=== PATIENT | female | born 1945 | race Caucasian/White ===

== ENCOUNTER 2020-09-22 13:56 | Inpatient (IN) ==
[2020-09-22] MEDS ORDERED: dilTIAZem HCL 240 MG CAPCR PO STA (14:25)
[2020-09-22 14:42] LABS: Basophils # (auto) 0.02 K/uL (0-0.2); Basophils % (auto) 0.2 %; Eosinophils # (auto) 0.12 K/uL (0-0.5); Eosinophils % (auto) 1.2 %; Hematocrit (blood only) 42.3 % (37-47); Hemoglobin 12.9 g/dL (12.0-16.0); Immature Granulocytes # (auto) 0.02 K/uL (0.00-0.02); Immature Granulocytes % (auto) 0.2 %; Lymphocytes # (auto) 1.14 K/uL (1.2-3.4); Lymphocytes % (auto) 11.8 %; Mean Corpuscular Hemoglobin 26.3 pg (25-34); Mean Corpuscular Hgb Conc 30.5 g/dL (32-36); Mean Corpuscular Volume 86.2 fL (80-100); Mean Platelet Volume 10.2 fL (7.4-10.4); Monocytes # (auto) 0.34 K/uL (0.11-0.59); Monocytes % (auto) 3.5 %; Neutrophils % (auto) 83.1 %; Platelet Count 205 K/uL (130-400); RDW Coefficient of Variation 16.3 % (11.5-14.5); RDW Standard Deviation 51.5 fL (36.4-46.3); Red Blood Count 4.91 M/uL (4.2-5.4); White Blood Count 9.64 K/uL (4.8-10.8)
--- NOTE | 2020-09-22 14:45 | Emergency Department Note ---
Impression & Plan Atrial fibrillation with rapid ventricular response, Blood glucose elevated ED Provider Note NAME: ROULA PEREZ AGE: 75 SEX: F : 1945 ARRIVES VIA: Walk-In INFORMANT: Patient ED PROVIDER(S): Kvng Pardo DO CHIEF COMPLAINT: abnormal ekg HPI: Patient is a 75-year-old female with past medical history of A. fib on Cardizem as well as rivaroxaban who presents the ER transferred over from preop. Preop testing she was found to be in abnormal rhythm. She did not take her Cardizem 240 mg this morning. Patient denies any headache or change in vision. No chest pain or shortness of breath. No nausea vomiting or diarrhea. No dysuria urgency or frequency. She is from [place]. She has absolutely no complaints at this time. She does not feel her heart racing. She has not missed any doses of her rivaroxaban. She is not on a percent sure she is n ormally in sinus rhythm or A. fib. Last time she was admitted was in [place] and October. ROS: See above HPI for pertinent positives & negatives. A total of 10 systems reviewed and were otherwise negative. PAST MEDICAL HISTORY:COPD, depression, A. fib, diabetes, DVT, gastroparesis, hypertension, hypothyroid, Parkinson's, PE PAST SURGICAL HISTORY:Cholecystectomy, IVC filter with removal and excision of breast mass FAMILY HISTORY:See Below SOCIAL HISTORY:See Below HOME MEDICATIONS:See Below ALLERGIES:See Below VITALS:See Below PHYSICAL EXAMINATION: GENERAL: Sitting up in bed, alert, well appearing, well nourished, no distress, non-toxic EYE EXAM: normal conjunctiva. PERRL and EOM's grossly intact. OROPHARYNX: no exudate, no erythema, lips, buccal mucosa, and tongue normal and mucous membranes are moist NECK: supple, no nuchal rigidity, no adenopathy, non-tender LUNGS: Clear to auscultation. Normal chest wall mechanics HEART: no murmurs, S1 normal and S2 normal ABDOMEN: abdomen soft, non-tender, normo-active bowel sounds, no masses, no rebound or guarding. BACK: Back is symmetrical on inspection and there is no deformity, no midline tenderness, no CVA tenderness. SKIN: no rashes and no bruising UPPER EXTREMITIES: upper extremities are grossly normal. LOWER EXTREMITIES: No pitting edema. NEURO EXAM: Normal sensorium, cranial nerves II-XII grossly intact, normal speech, no gross weakness of arms, no gross weakness of legs. MEDICAL DECISION MAKING: Patient is a 75-year-old female who presents the ER referred over from preop testing. She was found to be in a regular rhythm. IV was established blood work was obtained and EKG was obtained. EKG confirms A. fib RVR. She does have a history of A. fib RVR. She notes that she is normally in a sinus rhythm. She has been taking her rivaroxaban. She missed her dose of Cardizem orally this morning. She takes 240 mg once in the morning. IV was established blood work was obtained. She remained on her 3 L nasal cannula which is her baseline. Labs showed no significant leukocytosis or anemia. BMP with slightly elevated CO2 at 33. LFTs bilirubin was unremarkable. Troponin was detectable but not positive. Lipase was unremarkable. Patient was given her oral dose of Cardizem around 230. She was monitored closely. Heart rate persistently was elevated. He gave her a bolus of Cardizem IV 10 mg. Heart rate trended down to the low 100s with this and then trended back up when this wore off. After 3 hours she was still fairly persistently tachycardic. Heart rate was still in the 130s. Onset of action for oral Cardizem is 2 to 3 hours. I would have expected to see some improvement at this time. does not drive at night and consequently patient was placed on a Cardizem drip to slow her down more and discussed with the hospitalist as he would not be able to wait any longer for the oral Cardizem to start taking effect in hopes that she would convert over/be rate controlled and able to be discharged. Triage Nursing notes reviewed. Limited review of prior medical records performed Vital Signs: reviewed and remarkable for tachy Differential diagnosis: Differential diagnoses includes but is not limited to acute coronary syndrome, myocardial infarction, pericarditis, pulmonary embolus, aortic dissection, pneumonia, pneumothorax, musculoskeletal, shingles, esophageal. ER treatment provided: See below Diagnostics interpreted by me: ECG: A. fib RVR rate 131 Normal axis No PVCs Nonspecific ST wave changes in the inferior leads QTC 472 Cardiac Monitoring: An order was placed for continuous cardiac monitoring. The monitor shows a rate of 128 with Afib rhythm. Laboratory studies: As stated above and show below. Imaging studies: Portable AP upright 1 view of the chest shows no focal infiltrate or pneumothorax Consultation(s): Discussed with Bhavin Stinson for further evaluation Procedures: none Critical Care: I have personally spent 32 minutes of critical care time in the direct management of this patient. This includes bedside care, interpretation of diagnostic studies, and testing, discussion with consultants, patient, and family members, and other required patient management activities. This 32 minutes is in excess of all separately billable procedures. Past Med/Surg History Medical History Arthritis Atrial fibrillation on Diltiazem and Xarelto Chronic obstructive pulmonary disease Depression Diabetes IDDM Gastroparesis GERD (gastroesophageal reflux disease) History of blood clots Several blood clots (2016- large clot in heart and lung) > started on blood thinners Hyperlipidemia Hypertension Hypothyroidism Morbid obesity On home oxygen therapy 2L O2 continuous via [place] Osteoarthritis Surgical History Hx of cholecystectomy Hx of colonoscopy Hx of esophagogastroduodenoscopy Hx of left breast biopsy Cyst removal S/P IVC filter 2/2 blood clots (2016) Family History Mother Cardiac disorder Diabetes Hypertension Social History Smoking Status: Never smoker Second Hand Exposure: No; Hx Alcohol Use: Yes Hx Substance Use: No Preferred Language: Czech Communication Ability: Effective Bullet Maker Required: No Beliefs That Will Affect Care: None marital status: Current Living Situation: Spouse Feels Safe at Home: Yes Assistive Devices: Denture - Upper, Denture - Lower, Glasses, Oxygen - Continuous and Walker Allergies Allergies Allergy/AdvReac Type Severity Reaction Status Date / Time sulfamethoxazole Allergy Mild Hand Verified 09/22/20 15:58 [From Bactrim] blisters trimethoprim [From Bactrim] Allergy Mild Hand Verified 09/22/20 15:58 blisters indomethacin [From Indocin] AdvReac Severe Headache Verified 09/22/20 15:58 Home Meds Home Medications Medication Instructions Recorded Confirmed docusate sodium 100 mg capsule 400 mg PO HS 02/25/20 09/22/20 insulin aspart U-100 100 unit/mL 0 - 30 unit SUBCUT UD 02/25/20 09/22/20 subcutaneous solution levothyroxine 100 mcg tablet 100 mcg PO QAM 02/25/20 09/22/20 losartan 25 mg tablet 25 mg PO QAM 02/25/20 09/22/20 metoclopramide HCl 10 mg tablet 10 mg PO QID 02/25/20 09/22/20 rivaroxaban 20 mg tablet 20 mg PO QPM 02/25/20 09/22/20 sucralfate 1 gram tablet 1 g PO ACHS 02/25/20 09/22/20 mirabegron 50 mg tablet,extended 50 mg PO QAM 04/14/20 09/22/20 release 24 hr amoxicillin 500 mg PO TID 09/15/20 09/22/20 cholecalciferol (vitamin D3) 25 mcg PO DAILY 09/15/20 09/22/20 [Vitamin D3] diphenhydramine HCl 25 mg PO HS PRN 09/15/20 09/22/20 duloxetine 60 mg PO HS 09/15/20 09/22/20 [id number] [Creon] 1 cap PO BID 09/15/20 09/22/20 albuterol sulfate 2 puff INHALATION QID PRN 09/22/20 09/22/20 diltiazem HCl 240 mg PO QAM 09/22/20 09/22/20 insulin glargine [Lantus Solostar 50 unit SUBCUT HS 09/22/20 09/22/20 U-100 Insulin] ropinirole 1 mg PO TID 09/22/20 09/22/20 Results & Data (ED) Vital Signs Vital Signs - 24 hr 09/22/20 14:08 09/22/20 14:23 09/22/20 14:24 Temperature 35.9 C L Temperature Source Temporal Artery Scan Pulse Rate 119 H 119 H Pulse Rate [Apical] Pulse Rate from SpO2 Sensor 119 H Respiratory Rate 20 18 Respiratory Effort / Characteristics Non-Labored Spontaneous Blood Pressure 126/76 142/75 H Blood Pressure [Left Arm] Blood Pressure Mean 92 97 Blood Pressure Mean [Left Arm] Blood Pressure Position Sitting Pulse Oximetry 96 94 93 Oxygen Delivery Method Nasal Cannula Nasal Cannula Room Air Oxygen Flow Rate 2 Fraction of Inspired Oxygen Sepsis Recent Fever Within 48 Hours No Sepsis New/Unexplained Change in Mental Status No Sepsis Action Taken by Nursing No Action Required 09/22/20 14:30 09/22/20 14:46 09/22/20 15:00 Temperature Temperature Source Pulse Rate 126 H 114 H Pulse Rate [Apical] Pulse Rate from SpO2 Sensor 131 H 115 H Respiratory Rate 18 17 Respiratory Effort / Characteristics Blood Pressure Blood Pressure [Left Arm] Blood Pressure Mean Blood Pressure Mean [Left Arm] Blood Pressure Position Pulse Oximetry 95 93 Oxygen Delivery Method Room Air Nasal Cannula Nasal Cannula Oxygen Flow Rate 2 3 Fraction of Inspired Oxygen Sepsis Recent Fever Within 48 Hours Sepsis New/Unexplained Change in Mental Status Sepsis Action Taken by Nursing 09/22/20 15:27 09/22/20 15:30 09/22/20 16:15 Temperature 36.8 C Temperature Source Oral Pulse Rate 126 H Pulse Rate [Apical] 136 H Pulse Rate from SpO2 Sensor 133 H Respiratory Rate 17 18 Respiratory Effort / Characteristics Blood Pressure Blood Pressure [Left Arm] 131/95 Blood Pressure Mean Blood Pressure Mean [Left Arm] 107 Blood Pressure Position Pulse Oximetry 94 95 Oxygen Delivery Method Nasal Cannula Oxygen Flow Rate 3 Fraction of Inspired Oxygen Sepsis Recent Fever Within 48 Hours Sepsis New/Unexplained Change in Mental Status Sepsis Action Taken by Nursing 09/22/20 16:30 09/22/20 17:00 09/22/20 17:30 Temperature Temperature Source Pulse Rate 104 H 132 H Pulse Rate [Apical] Pulse Rate from SpO2 Sensor 116 H 125 H Respiratory Rate 16 18 18 Respiratory Effort / Characteristics Blood Pressure 125/100 129/59 L Blood Pressure [Left Arm] Blood Pressure Mean 108 82 Blood Pressure Mean [Left Arm] Blood Pressure Position Pulse Oximetry 94 94 Oxygen Delivery Method Nasal Cannula Nasal Cannula Oxygen Flow Rate 3 Fraction of Inspired Oxygen 3 Sepsis Recent Fever Within 48 Hours Sepsis New/Unexplained Change in Mental Status Sepsis Action Taken by Nursing Laboratory Data Result diagrams: 09/22/20 14:32 09/22/20 14:32 Lab Results 09/22/20 09/22/20 Range/Units 14:32 14:32 WBC 9.64 (4.8-10.8) K/uL RBC 4.91 (4.2-5.4) M/uL Hgb 12.9 (12.0-16.0) g/dL Hct 42.3 (37-47) % MCV 86.2 (80-100) fL MCH 26.3 (25-34) pg MCHC 30.5 L (32-36) g/dL RDW Std Deviation 51.5 H (36.4-46.3) fL RDW Coeff of Geovanna 16.3 H (11.5-14.5) % Plt Count 205 (130-400) K/uL MPV 10.2 (7.4-10.4) fL Immature Gran % (Auto) 0.2 % Neut % (Auto) 83.1 % Lymph % (Auto) 11.8 % [place] % (Auto) 3.5 % Eos % (Auto) 1.2 % Baso % (Auto) 0.2 % Neut # (Auto) 8.00 H (1.4-6.5) K/uL Lymph # (Auto) 1.14 L (1.2-3.4) K/uL [place] # (Auto) 0.34 (0.11-0.59) K/uL Eos # (Auto) 0.12 (0-0.5) K/uL Baso # (Auto) 0.02 (0-0.2) K/uL Immature Gran # (Auto) 0.02 (0.00-0.02) K/uL Sodium 139 (136-145) mmol/L Potassium 4.7 (3.5-5.1) mmol/L Chloride 104 (98-107) mmol/L Carbon Dioxide 33 H (21-32) mmol/L Anion Gap 2.0 L (3-11) BUN 17 (7-18) mg/dl Creatinine 0.87 (0.6-1.2) mg/dl Est Cr Clr Drug Dosing 74.1 ml/min Est GFR ( Amer) 75.0 Est GFR (Non-Af Amer) 64.7 BUN/Creatinine Ratio 19.9 (10-20) Glucose 264 H (70-99) mg/dl Calcium 9.5 (8.5-10.1) mg/dl Total Bilirubin 0.2 (0.2-1) mg/dl AST 29 (15-37) U/L ALT 26 (12-78) U/L Alkaline Phosphatase 77 (45-117) U/L Troponin I 0.020 (0-0.045) ng/ml Total Protein 8.2 (6.4-8.2) gm/dl Albumin 2.9 L (3.4-5.0) gm/dl Globulin 5.3 H (2.5-4.0) gm/dl Albumin/Globulin Ratio 0.5 L (0.9-2) Lipase 171 (73-393) U/L Administered Medications Discontinued Medications Diltiazem HCl (Diltiazem Hcl 240 Mg Capcr) 240 mg PO NOW STA Stop: 09/22/20 14:26 Last Admin: 09/22/20 14:45 Dose: 240 mg Documented by: [id number] Diltiazem HCl (Diltiazem Hcl 5 Mg/Ml 5 Ml Vial) 10 mg IV NOW STA Stop: 09/22/20 16:00 Last Admin: 09/22/20 16:20 Dose: 10 mg Documented by: [id number] Cosigned by: [id number] Discharge Plan Visit Data Chief Complaint: Tachycardia Stated Complaint: HEART PROBLEM ED Provider: Kvng Pardo Discharge Problem: Atrial fibrillation with rapid ventricular response, Blood glucose elevated Forms Stand Alone Forms: [facility] Prescriptions Prescriptions: No Action Myrbetriq 50 mg tablet extended release 24 hr 50 mg PO QAM RF: 0 Xarelto 20 mg tablet 20 mg PO QPM RF: 0 metoclopramide HCl 10 mg tablet 10 mg PO QID RF: 0 docusate sodium 100 mg capsule 400 mg PO HS RF: 0 losartan 25 mg tablet 25 mg PO QAM RF: 0 insulin aspart U-100 100 unit/mL solution 0 - 30 unit subcut UD RF: 0 levothyroxine 100 mcg tablet 100 mcg PO QAM RF: 0 sucralfate 1 gram tablet 1 g PO ACHS RF: 0 ropinirole 1 mg tablet 1 mg PO TID RF: 0 diltiazem HCl 240 mg capsule,extended release 24hr 240 mg PO QAM RF: 0 albuterol sulfate 90 mcg/actuation HFA aerosol inhaler 2 puff INHALATION QID PRN (Reason: Cough or Wheezing) RF: 0 Lantus Solostar U-100 Insulin 100 unit/mL (3 mL) insulin pen 50 unit SUBCUT HS RF: 0 amoxicillin 500 mg Capsule 500 mg PO TID RF: 0 diphenhydramine HCl 25 mg Capsule 25 mg PO HS PRN (Reason: Itching) RF: 0 duloxetine 60 mg Capsule,Delayed Release(Dr/Ec) 60 mg PO HS RF: 0 cholecalciferol (vitamin D3) [Vitamin D3] 25 mcg (1,000 unit) Tablet 25 mcg PO DAILY RF: 0 Creon 6,000-19,000 -30,000 unit Capsule,Delayed Release(Dr/Ec) 1 cap PO BID RF: 0
--- NOTE | 2020-09-22 14:55 | XRay Report ---
XR chest 1V portable HISTORY: Atypical Chest Pain COMPARISON: None. FINDINGS: There are low lung volumes. No pneumothorax. No pleural effusions. A few left basilar linea r densities favor subsegmental atelectasis or scarring. Otherwise, no focal lung consolidations to may ggest pneumonia. The heart is mildly enlarged. There is mild central pulmonary vascular congestion wi thout overt edema. Old, healed left-sided rib fractures. IMPRESSION: Cardiomegaly with mild central pulmonary vascular congestion. ACT 112: Negative or not required by law. Electronically signed by: Jose Lloyd M.D. 09/22/2020 2:54 PM
[2020-09-22 15:04] LABS: Albumin Level 2.9 gm/dl (3.4-5.0); BUN Creatinine Ratio 19.9 (10-20); Calcium 9.5 mg/dl (8.5-10.1); Creatinine Clr Calc Pharmacy 74.1 ml/min; Est GFR (Non-African American) 64.7; Potassium 4.7 mmol/L (3.5-5.1)
[2020-09-22 15:09] LABS: Albumin Globulin Ratio 0.5 (0.9-2); Bilirubin,Total 0.2 mg/dl (0.2-1); Globulin 5.3 gm/dl (2.5-4.0); Total Protein 8.2 gm/dl (6.4-8.2); Troponin I 0.02 ng/ml (0-0.045)
[2020-09-22] MEDS ORDERED: dilTIAZem HCl 5 MG/ML 5 ML VIAL IV STA (15:59)
[2020-09-22] MEDS ORDERED: STAT IV Infusion **Titration per Protocol STA (17:18)
[2020-09-22] MEDS: dilTIAZem HCL 125 MG in DEXTROSE 5% 100 ML IV SCH (18:03)
[2020-09-22] MEDS ORDERED: FUROSEMIDE 40 MG/4 ML VIAL IV STA (18:14)
--- NOTE | 2020-09-22 18:18 | History & Physical Report ---
Date of Service September 22, 2020 Assessment & Plan (1) Atrial fibrillation with rapid ventricular response: 75-year-old female past medical history significant for A. fib on Xarelto therapy, insulin-dependent DM2, mixed incontinence, hypertension, COPD on 2LNC admitted for A. fib/flutter with rapid ventricular response requiring IV rate control medications. A. fib/flutter: Noted to have tachycardia to 130s during preoperative testing today, prompting her ER evaluation. Initially presented with A. fib with RVR, without improvement in heart rate with home p.o. Cardizem. Patient was started on diltiazem push/drip. Continue home Xarelto therapy. On my interview EKG was repeated which showed findings more consistent with a flutter. Patient will be admitted to telemetry floor for continuous cardiac monitoring with titration of diltiazem drip. Has been asymptomatic throughout this process. Echocardiogram ordered for the morning. Cardiology consult placed for consideration of cardioversion for a flutter versus adjustment of rate control therapies. Patient also requires cardiology clearance for her upcoming urologic procedure given today's findings on preoperative testing. Uncontrolled insulin-dependent DM2: Noted on preoperative lab work to have a hemoglobin A1c of 11.2%. Patient is on 50 units Lantus daily at home, with ~20u NovoLog with meals. On interview patient has several meals and beverages throughout the day that are contributory to her elevated BSG, dietary modification reviewed. Patient may benefit from dietary consultation either while admitted or in outpatient setting. Lantus 25 units twice daily with SSI, DM2 diet while admitted. Defer to PCP for titration of DM2 medications. COPD /chronic hypoxic respiratory failure: Patient is on 2 LNC at baseline, no complaints of shortness of breath at this time, and saturating well on her baseline oxygen requirement. CXR performed in ER shows cardiomegaly with mild central pulmonary vascular congestion. Patient admits that she has been prescribed Lasix in the past, but "usually does not take it because she is incontinent". Lasix 40 mg IV x1 given. Hypertension: Normotensive at this time. Continue home diltiazem and losartan. CODE STATUS: Full code FEN: DM2 diet DVT prophylaxis: Xarelto Dispo: Telemetry for continuous cardiac monitoring and cardiology consult in the morning (2) Atrial flutter: (3) Uncontrolled diabetes mellitus: (4) Hypertension: (5) Urinary incontinence: History of Present Illness Chief Complaint: Tachycardia Primary Care Provider: Cristine Hayes MD 75-year-old female past medical history significant for A. fib on Xarelto therapy, insulin-dependent DM2, mixed incontinence, hypertension, COPD on 2LNC presented to the ER during preoperative testing today due to concern for SVT on EKG. In the ER patient was noted on telemetry and EKG to be in A. fib with RVR. Was given NSS 1 L bolus as well as her home diltiazem 240 mg p.o. which the patient missed this morning, but after several hours without response was started on diltiazem push and drip. Hospitalist service was consulted for admission given continued A. fib. On my interview patient denies chest pain, palpitations, shortness of breath, dizziness or headache, abdominal pain. No recent urinary symptoms, no diarrhea. Allergies Allergy/AdvReac Type Severity Reaction Status Date / Time sulfamethoxazole Allergy Mild Hand Verified 09/22/20 15:58 [From Bactrim] blisters trimethoprim [From Bactrim] Allergy Mild Hand Verified 09/22/20 15:58 blisters indomethacin [From Indocin] AdvReac Severe Headache Verified 09/22/20 15:58 Home Medications Medication Instructions Recorded Confirmed Type docusate sodium 100 mg capsule 400 mg PO HS 02/25/20 09/22/20 History insulin aspart U-100 100 unit/mL 0 - 30 unit SUBCUT UD 02/25/20 09/22/20 History subcutaneous solution levothyroxine 100 mcg tablet 100 mcg PO QAM 02/25/20 09/22/20 History losartan 25 mg tablet 25 mg PO QAM 02/25/20 09/22/20 History metoclopramide HCl 10 mg tablet 10 mg PO QID 02/25/20 09/22/20 History rivaroxaban 20 mg tablet 20 mg PO QPM 02/25/20 09/22/20 History sucralfate 1 gram tablet 1 g PO ACHS 02/25/20 09/22/20 History mirabegron 50 mg tablet,extended 50 mg PO QAM 04/14/20 09/22/20 History release 24 hr amoxicillin 500 mg PO TID 09/15/20 09/22/20 History cholecalciferol (vitamin D3) 25 mcg PO DAILY 09/15/20 09/22/20 History [Vitamin D3] diphenhydramine HCl 25 mg PO HS PRN 09/15/20 09/22/20 History duloxetine 60 mg PO HS 09/15/20 09/22/20 History [id number] [Creon] 1 cap PO BID 09/15/20 09/22/20 History albuterol sulfate 2 puff INHALATION QID PRN 09/22/20 09/22/20 History diltiazem HCl 240 mg PO QAM 09/22/20 09/22/20 History insulin glargine [Lantus Solostar 50 unit SUBCUT HS 09/22/20 09/22/20 History U-100 Insulin] ropinirole 1 mg PO TID 09/22/20 09/22/20 History Past Med/Surg History Medical History Ambulatory dysfunction Arthritis Atrial fibrillation on Diltiazem and Xarelto Chronic obstructive pulmonary disease Depression Diabetes IDDM Gastroparesis GERD (gastroesophageal reflux disease) History of blood clots Several blood clots (2016- large clot in heart and lung) > started on blood thinners Hyperlipidemia Hypertension Hypothyroidism Lymphedema Morbid obesity On home oxygen therapy 2L O2 continuous via [place] Osteoarthritis Paroxysmal atrial fibrillation Surgical History Hx of cholecystectomy Hx of colonoscopy Hx of esophagogastroduodenoscopy Hx of left breast biopsy Cyst removal S/P IVC filter 2/2 blood clots (2015) Family History Mother Cardiac disorder Diabetes Hypertension Social History Smoking Status: Former smoker Second Hand Exposure: No; Do You Dip or Chew Tobacco: No; Hx Alcohol Use: Yes Alcohol type: wine Hx Substance Use: No Preferred Language: Bulgarian Communication Ability: Effective Bottoming Room Supervisor Required: No Beliefs That Will Affect Care: None marital status: Current Living Situation: Spouse Other Information That Helps Us Care for You: No Feels Safe at Home: Yes Safety Concerns: Feels Safe At This Time Assistive Devices: Walker Review of Systems Review of Systems: All systems reviewed & are unremarkable except as noted in HPI & below Constitutional: no fever, no chills and no malaise Respiratory: no cough and no dyspnea Cardiovascular: no chest pain, no palpitations and no edema Gastrointestinal: no abdominal pain, no constipation and no diarrhea/loose stools Genitourinary: no dysuria and no hematuria Physical Exam Constitutional: well developed and + morbidly obese; no acute distress Eyes: PERRL, conjunctivae normal, anicteric sclerae ENMT: external ear and nose normal, oropharynx normal Neck: normal visual inspection Respiratory: normal respiratory effort; no cough Auscultation: + crackles (Bibasilar) Cardiovascular: Rate/Rhythm: + tachycardic and + irregularly irregular Heart Sounds: no murmur Extremities: + edema (Lymphedema, no pitting edema) Gastrointestinal (Abdomen): normal bowel sounds, soft, nontender, no hepatosplenomegaly Musculoskeletal: no cyanosis or clubbing, extremities motor strength 5/5 Skin: no rashes, warm and dry Neurologic: AAOx3, normal speech. Moves all extremities equally Psychiatric: A+Ox3, euthymic affect Results & Data Results & Data ([facility]) Vital Signs (Past 12 Hours) Vital Signs Temp Pulse Pulse Resp BP BP Pulse Ox 09/22/20 18:00 117 H 21 137/92 94 09/22/20 17:30 18 129/59 L 94 09/22/20 17:00 132 H 18 09/22/20 16:30 104 H 16 125/100 94 09/22/20 16:15 136 H 18 131/95 95 09/22/20 15:30 126 H 17 94 09/22/20 15:27 36.8 C 09/22/20 15:00 114 H 17 93 09/22/20 14:30 126 H 18 95 09/22/20 14:24 119 H 18 142/75 H 93 09/22/20 14:23 94 09/22/20 14:08 35.9 C L 119 H 20 126/76 96 Code Status & VTE Plan VTE Prophylaxis Plan VTE Prophylaxis will be ordered: Yes Supervising Physician Co-Signing Physician Notes I personally saw and examined the patient. I verified all sousa points and agree with resident physician Dr. Mercedes Osman with the following exceptions and/or additions: 75 year old female with known paroxysmal atrial fibrillation presents from her preop visit due to tachycardia with a heart rate in the 130s. O/E HS tachycardia, irregularly irregular, no murmurs, chest - bibasal crackles, pitting edema 1+ equal to knees b/l A/P Atrial flutter - patient not previously known to have this, suspect reason for her uncontrolled HR despite taking her usual diltiazem. Will pursue rate control strategy overnight with IV diltiazem already started in the ER. Patient reports compliance with anticoagulation (Xarelto) therefore could be safely changed to rhythm control strategy as needed however unknown how much time she spends in a. fib vs NSR usually. TSH WNL. TTE ordered for AM. Will consult cardiology for rate/rhythm control recommendations. Acute heart failure with (presumed preserved ejection fraction) Paroxysmal atrial fibrillation - longstanding diagnosis, management as above for atrial flutter. Uncontrolled T2DM - management as above Resident Activity Tracking Resident Involvement: Resident Care Provided Care Provided: Adult Hospital Medicine (1) Urinary incontinence Urinary Incontinence type: mixed stress and urge incontinence Qualified Code(s): N39.46 - Mixed incontinence (2) Atrial flutter Atrial flutter type: unspecified Qualified Code(s): I48.92 - Unspecified atrial flutter (3) Uncontrolled diabetes mellitus Diabetes mellitus type: type 2 Glycemic state: with hyperglycemia Qualified Code(s): E11.65 - Type 2 diabetes mellitus with hyperglycemia (4) Hypertension Hypertension type: essential hypertension Qualified Code(s): I10 - Essential (primary) hypertension
[2020-09-22] MEDS ORDERED: ONDANSETRON INJ 2 MG/ML 2 ML VIAL IV PRN (20:04)
[2020-09-22] MEDS ORDERED: ALBUTEROL HFA 8 GM INHALER INH PRN (20:04)
[2020-09-22] MEDS ORDERED: GLUCOSE 40% GEL 15 GM TUBE PO PRN (20:04)
[2020-09-22] MEDS ORDERED: GLUCAGON FOR INJ 1 MG VIAL SQ PRN (20:04)
[2020-09-22] MEDS ORDERED: POLYETHYLENE (MIRALAX) 17 GM PACK PO PRN (20:04)
[2020-09-22] MEDS ORDERED: DEXTROSE 50% 50 ML SYRINGE IV PRN (20:04)
[2020-09-22] MEDS ORDERED: CARBOHYDRATES FOR HYPOGLYCEMIA PO PRN (20:04)
[2020-09-22] MEDS ORDERED: GLUCOSE 10 TABS/TUBE PO PRN (20:04)
[2020-09-22] MEDS: rOPINIRole HCL 1 MG TABLET PO SCH (20:56)
[2020-09-22] MEDS: DOCUSATE SODIUM 100 MG CAP PO SCH (20:56)
[2020-09-22] MEDS: INSULIN ASPART 100 UNITS/ML 3 ML PEN SC SCH (20:57)
[2020-09-22] MEDS: SUCRALFATE 1 GM TAB PO SCH (20:57)
[2020-09-22] MEDS: DULoxetine HCL 60 MG CAP PO SCH (20:57)
[2020-09-22] MEDS: RIVAROXABAN 20 MG TAB PO SCH (20:57)
[2020-09-22] MEDS: METOCLOPRAMIDE HCL 10 MG TABLET PO SCH (20:57)
[2020-09-22] MEDS: INSULIN GLARGINE SOLOSTAR 100 UNITS/ML 3 ML PEN SC SCH (20:57)
[2020-09-23] MEDS: dilTIAZem HCL 125 MG in DEXTROSE 5% 100 ML IV SCH ×2 (02:04→09:54)
[2020-09-23] MEDS: LEVOTHYROXINE SODIUM 100 MCG TABLET PO SCH (05:59)
[2020-09-23] MEDS: ACETAMINOPHEN 325 MG TAB PO PRN ×2 (06:03→21:22)
[2020-09-23 08:36] LABS: BUN Creatinine Ratio 19.7 (10-20); Calcium 9.2 mg/dl (8.5-10.1); Creatinine Clr Calc Pharmacy 69.7 ml/min; Est GFR (Non-African American) 63.8; Magnesium 1.9 mg/dl (1.8-2.4); Potassium 4.2 mmol/L (3.5-5.1)
[2020-09-23] MEDS: rOPINIRole HCL 1 MG TABLET PO SCH ×3 (08:56→20:55)
[2020-09-23] MEDS: DOCUSATE SODIUM 100 MG CAP PO SCH ×2 (08:56→20:53)
[2020-09-23] MEDS: SUCRALFATE 1 GM TAB PO SCH ×4 (08:56→20:51)
[2020-09-23] MEDS: MIRABEGRON ER 25 MG TAB PO SCH (08:57)
[2020-09-23] MEDS: METOCLOPRAMIDE HCL 10 MG TABLET PO SCH ×4 (08:57→20:53)
[2020-09-23] MEDS: LOSARTAN POTASSIUM 25 MG TAB PO SCH (08:57)
[2020-09-23] MEDS: INSULIN GLARGINE SOLOSTAR 100 UNITS/ML 3 ML PEN SC SCH ×2 (08:58→20:52)
[2020-09-23] MEDS: dilTIAZem HCL 240 MG CAPCR PO SCH (08:58)
[2020-09-23] MEDS: INSULIN ASPART 100 UNITS/ML 3 ML PEN SC SCH ×4 (09:01→20:51)
[2020-09-23] MEDS: MICONAZOLE NITRATE POWDER 43 GM EXT SCH ×2 (09:33→20:54)
[2020-09-23] MEDS: METOPROLOL SUCC 50MG EXT REL TAB PO SCH (13:07)
--- NOTE | 2020-09-23 13:14 | Cardiology Consultation ---
Date of Consultation September 23, 2020 Assessment & Plan (1) Paroxysmal atrial flutter: (2) Paroxysmal atrial fibrillation: (3) Hypertension: (4) Hyperlipidemia: ASSESSMENT/PLAN: 1. Atrial flutter with rapid ventricular response: She spontaneously converted. She appeared to be largely asymptomatic, and unclear if her feeling of being not well correlates exactly with her arrhythmia. Discussed treatment strategies. Already on anticoagulation for stroke risk reduction. Given that she had prior paroxysmal AFib per records, considered amiodarone with close follow-up in the outpatient setting. Other options such as rate control in ablation also discussed, although atrial flutter ablation would not address paroxysmal AFib. She does not wish to follow up with Cardiology in this area as she does not live nearby. Therefore, recommend initiation of beta-rehana to help improve her overall heart rate as she is not overly bothered by her atrial flutter. If she has significant recurrence with tachycardia, would then recommend antiarrhythmic therapy or consideration of ablation. She would like to follow-up with Cardiology near her home and it was recommended that she do so in approximately 1 week. Metoprolol succinate 50 mg once daily recommended. Continue diltiazem. 2. Paroxysmal atrial fibrillation: Details of this prior diagnosis unknown. Continue rate control strategy as above. On anticoagulation therapy chronically for stroke risk reduction and also prior pulmonary emboli. 3. Hypertension: Blood pressure adequately controlled. Adding beta-rehana as above for rate control. 4. Dyslipidemia: Most recent lipids not known as she does not follow locally. She has not tolerated several statin therapies in the past. As per her PCP. Depending on her values, could consider non statin therapy. 5. Lymphedema: Suggested lymphedema clinic but she apparently has attended this in the past without great results. 6. Disposition: Recommended that she follow closely with cardiology. She would like to be followed in the [place] area as it is much more convenient for her. [place] office was also offered but still not convenient for her. Recommend that she establishes care with cardiology in her hometown area in approximately 1 week. Plan of care communicated with Dr. Romano of the primary hospitalist service. Thank you for allowing me to participate in the care of your patient. Please call for any other questions or concerns. Sincerely, Vinay Doe M.D. History of Present Illness Reason for Consultation: Atrial flutter with rapid ventricular response Requesting Physician: Dr. Steven Attending Physician: Mike Romano DO History of Present Illness Mrs. Ambrose is a pleasant 75-year-old female with history significant for paroxysmal atrial fibrillation, pulmonary emboli on chronic anticoagulation therapy (2016) COPD on supplemental oxygen (2 L via nasal cannula), type 2 diabetes, gastroparesis, hypertension, and dyslipidemia intolerant to statin therapy. He she was admitted on 09/22/2020 with atrial flutter with rapid ventricular response. She is in the process of undergoing a urologic procedure and during preoperative assessment was noted to be tachycardic and in atrial flutter on ECG and was therefore referred to the emergency department. She was admitted and placed on a diltiazem drip. She was completely asymptomatic in that regard without palpitations, chest pain, or shortness of breath. She has noted over the past 3 weeks she has not felt well but could not further describe her feelings. She had decreased appetite but no cardiac symptoms. While here, she was noted to spontaneously convert to sinus rhythm on 09/22/2020 at 9:44 p.m.. Since then, she has been in sinus rhythm with PACs and possibly ectopic atrial complexes. She has been treated home with diltiazem for her history of AFib and states that she has been compliant with her medications. 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 She denies syncope, near-syncope, palpitations, chest pain, worsening shortness of breath, or worsening edema. She has lymphedema and has been treated before in a lymphedema clinic without significant improvement. She no longer goes to the lymphedema clinic. She denies melena, hematochezia, or hematuria. Review of systems: As above. Review of systems otherwise negative/unremarkable. Family history: Mother from [place] at the age of 65. Social history: She quit smoking years ago. Rare alcohol. No drugs. Lives at home with her and youngest daughter. She has 7 daughters in total. She lives in [place], [place]. She was unaccompanied today. Allergies Allergy/AdvReac Type Severity Reaction Status Date / Time sulfamethoxazole Allergy Mild Hand Verified 09/22/20 15:58 [From Bactrim] blisters trimethoprim [From Bactrim] Allergy Mild Hand Verified 09/22/20 15:58 blisters indomethacin [From Indocin] AdvReac Severe Headache Verified 09/22/20 15:58 Home Medications Medication Instructions Recorded Confirmed Type docusate sodium 100 mg capsule 400 mg PO HS 02/25/20 09/22/20 History insulin aspart U-100 100 unit/mL 0 - 30 unit SUBCUT UD 02/25/20 09/22/20 History subcutaneous solution levothyroxine 100 mcg tablet 100 mcg PO QAM 02/25/20 09/22/20 History losartan 25 mg tablet 25 mg PO QAM 02/25/20 09/22/20 History metoclopramide HCl 10 mg tablet 10 mg PO QID 02/25/20 09/22/20 History rivaroxaban 20 mg tablet 20 mg PO QPM 02/25/20 09/22/20 History sucralfate 1 gram tablet 1 g PO ACHS 02/25/20 09/22/20 History mirabegron 50 mg tablet,extended 50 mg PO QAM 04/14/20 09/22/20 History release 24 hr amoxicillin 500 mg PO TID 09/15/20 09/22/20 History cholecalciferol (vitamin D3) 25 mcg PO DAILY 09/15/20 09/22/20 History [Vitamin D3] diphenhydramine HCl 25 mg PO HS PRN 09/15/20 09/22/20 History duloxetine 60 mg PO HS 09/15/20 09/22/20 History [id number] [Creon] 1 cap PO BID 09/15/20 09/22/20 History albuterol sulfate 2 puff INHALATION QID PRN 09/22/20 09/22/20 History diltiazem HCl 240 mg PO QAM 09/22/20 09/22/20 History insulin glargine [Lantus Solostar 50 unit SUBCUT HS 09/22/20 09/22/20 History U-100 Insulin] ropinirole 1 mg PO TID 09/22/20 09/22/20 History Patient History Medical History Arthritis Atrial fibrillation on Diltiazem and Xarelto Chronic obstructive pulmonary disease Depression Diabetes IDDM Gastroparesis GERD (gastroesophageal reflux disease) History of blood clots Several blood clots (2016- large clot in heart and lung) > started on blood thinners Hyperlipidemia Hypertension Hypothyroidism Lymphedema Morbid obesity On home oxygen therapy 2L O2 continuous via NC Osteoarthritis Paroxysmal atrial fibrillation Surgical History Hx of cholecystectomy Hx of colonoscopy Hx of esophagogastroduodenoscopy Hx of left breast biopsy Cyst removal S/P IVC filter 2/2 blood clots (2015) Family History Mother Cardiac disorder Diabetes Hypertension Social History Smoking Status: Former smoker Second Hand Exposure: No; Do You Dip or Chew Tobacco: No; Hx Alcohol Use: Yes Alcohol type: wine Hx Substance Use: No Preferred Language: Urdu Communication Ability: Effective Paperboard Machine Operator Required: No Beliefs That Will Affect Care: None marital status: Current Living Situation: Spouse Other Information That Helps Us Care for You: No Feels Safe at Home: Yes Safety Concerns: Feels Safe At This Time Assistive Devices: Denture - Upper, Denture - Lower, Oxygen - Continuous and Walker Physical Exam Physical Exam: Gen.: No acute distress. Alert and oriented. HEENT: Anicteric sclera. Neck: No JVD. No bruits. Normal carotid upstrokes bilaterally. Cardiac: PMI was nonpalpable. No ventricular heave. Regular with ectopy. Normal S1-S2. No murmurs, rubs, or gallops. Pulmonary: Clear to auscultation bilaterally without wheezes, rales, or rhonchi. Abdomen: Soft, nontender, nondistended, with normoactive bowel sounds. No bruits noted. Extremities: 2+ radial pulses bilaterally. 2+ posterior tibialis pulses bilaterally. Bilateral lower extremity lymphedema without significant pitting edema. No cyanosis. Psychiatric: Affect appears appropriate. Results & Data ([facility]) Vital Signs (Past 12 Hours) Vital Signs Temp Pulse Pulse Pulse Resp BP BP 09/23/20 11:37 36.9 C 89 18 110/54 L 09/23/20 11:14 88 09/23/20 08:12 37.0 C 87 18 97/62 L 09/23/20 06:00 94 H 124/67 09/23/20 05:00 99 H 140/63 09/23/20 04:00 100 H 120/71 09/23/20 03:36 37.1 C 101 H 21 125/63 09/23/20 03:00 103 H 125/63 09/23/20 02:00 101 H 17 127/64 09/23/20 01:30 95 H 19 124/71 Pulse Ox 09/23/20 11:37 95 09/23/20 11:14 09/23/20 08:12 94 09/23/20 06:00 09/23/20 05:00 09/23/20 04:00 95 09/23/20 03:36 96 09/23/20 03:00 95 09/23/20 02:00 95 09/23/20 01:30 95 Laboratory Results Laboratory Results - last 24 hr 09/22/20 09/22/20 09/22/20 14:32 14:32 14:32 WBC 9.64 RBC 4.91 Hgb 12.9 Hct 42.3 MCV 86.2 MCH 26.3 MCHC 30.5 L RDW Std Deviation 51.5 H RDW Coeff of Geovanna 16.3 H Plt Count 205 MPV 10.2 Immature Gran % (Auto) 0.2 Neut % (Auto) 83.1 Lymph % (Auto) 11.8 Bath % (Auto) 3.5 Eos % (Auto) 1.2 Baso % (Auto) 0.2 Neut # (Auto) 8.00 H Lymph # (Auto) 1.14 L Bath # (Auto) 0.34 Eos # (Auto) 0.12 Baso # (Auto) 0.02 Immature Gran # (Auto) 0.02 Sodium 139 Potassium 4.7 Chloride 104 Carbon Dioxide 33 H Anion Gap 2.0 L BUN 17 Creatinine 0.87 Est Cr Clr Drug Dosing 74.1 Est GFR ( Amer) 75.0 Est GFR (Non-Af Amer) 64.7 BUN/Creatinine Ratio 19.9 Glucose 264 H POC Glucose Calcium 9.5 Magnesium Total Bilirubin 0.2 AST 29 ALT 26 Alkaline Phosphatase 77 Troponin I 0.020 NT-Pro-B Natriuret Pep Total Protein 8.2 Albumin 2.9 L Globulin 5.3 H Albumin/Globulin Ratio 0.5 L Lipase 171 TSH 4.200 COVID-19 Eval Order SARS-CoV-2, RNA, NAAT 09/22/20 09/22/20 09/22/20 17:52 17:52 20:04 WBC RBC Hgb Hct MCV MCH MCHC RDW Std Deviation RDW Coeff of Geovanna Plt Count MPV Immature Gran % (Auto) Neut % (Auto) Lymph % (Auto) Bath % (Auto) Eos % (Auto) Baso % (Auto) Neut # (Auto) Lymph # (Auto) Bath # (Auto) Eos # (Auto) Baso # (Auto) Immature Gran # (Auto) Sodium Potassium Chloride Carbon Dioxide Anion Gap BUN Creatinine Est Cr Clr Drug Dosing Est GFR ( Amer) Est GFR (Non-Af Amer) BUN/Creatinine Ratio Glucose POC Glucose 248 H Calcium Magnesium Total Bilirubin AST ALT Alkaline Phosphatase Troponin I NT-Pro-B Natriuret Pep Total Protein Albumin Globulin Albumin/Globulin Ratio Lipase TSH COVID-19 Eval [facility] SARS-CoV-2, RNA, NAAT NEGATIVE 09/23/20 09/23/20 09/23/20 07:24 07:41 07:42 WBC RBC Hgb Hct MCV MCH MCHC RDW Std Deviation RDW Coeff of Geovanna Plt Count MPV Immature Gran % (Auto) Neut % (Auto) Lymph % (Auto) Bath % (Auto) Eos % (Auto) Baso % (Auto) Neut # (Auto) Lymph # (Auto) Bath # (Auto) Eos # (Auto) Baso # (Auto) Immature Gran # (Auto) Sodium 137 Potassium 4.2 Chloride 102 Carbon Dioxide 35 H Anion Gap 1.0 L BUN 17 Creatinine 0.88 Est Cr Clr Drug Dosing 69.7 Est GFR ( Amer) 74.0 Est GFR (Non-Af Amer) 63.8 BUN/Creatinine Ratio 19.7 Glucose 230 H POC Glucose 306 H* 236 H Calcium 9.2 Magnesium 1.9 Total Bilirubin AST ALT Alkaline Phosphatase Troponin I NT-Pro-B Natriuret Pep 1085 Total Protein Albumin Globulin Albumin/Globulin Ratio Lipase TSH COVID-19 Eval Order SARS-CoV-2, RNA, NAAT 09/23/20 09/23/20 07:44 11:19 WBC RBC Hgb Hct MCV MCH MCHC RDW Std Deviation RDW Coeff of Geovanna Plt Count MPV Immature Gran % (Auto) Neut % (Auto) Lymph % (Auto) Bath % (Auto) Eos % (Auto) Baso % (Auto) Neut # (Auto) Lymph # (Auto) Bath # (Auto) Eos # (Auto) Baso # (Auto) Immature Gran # (Auto) Sodium Potassium Chloride Carbon Dioxide Anion Gap BUN Creatinine Est Cr Clr Drug Dosing Est GFR ( Amer) Est GFR (Non-Af Amer) BUN/Creatinine Ratio Glucose POC Glucose 246 H 249 H Calcium Magnesium Total Bilirubin AST ALT Alkaline Phosphatase Troponin I NT-Pro-B Natriuret Pep Total Protein Albumin Globulin Albumin/Globulin Ratio Lipase TSH COVID-19 Eval Order SARS-CoV-2, RNA, NAAT Diagnostic Findings Telemetry personally reviewed: Initially atrial flutter with rapid ventricular response but converted to sinus rhythm at approximately 9:44 p.m. on 09/22/2020. Since then, sinus rhythm with PACs and occasional ectopic atrial complexes. Echo reviewed from 09/23/2020: Poor image quality but probably low-normal LV systolic function. RV systolic function appeared reduced. Mild MR. Normal RVSP. ECGs personally reviewed: ECG 09/22/2020 at 5:47 p.m.: Atrial flutter with variable AV conduction at 117 beats per minute. ECG 09/22/2020 at 2:23 p.m.: Atrial flutter with variable AV conduction at 131 beats per minute. ECG 09/23/2020: Sinus rhythm with PACs. Nonspecific T-wave abnormality. Chest x-ray 09/22/2020: Mild pulmonary vascular congestion without overt edema per Radiology. Chest x-ray image personally reviewed: No obvious infiltrate. No effusions noted. Medications Administered Current Inpatient Medications Acetaminophen (Acetaminophen 325 Mg Tab) 650 mg PO Q4H PRN PRN Reason: Pain or Fever Stop: 10/22/20 20:03 Last Admin: 09/23/20 06:03 Dose: 650 mg Documented by: Albuterol (Albuterol Hfa 8 Gm Inhaler) 2 puffs INH Q6R PRN PRN Reason: Cough or Wheezing Stop: 10/22/20 20:03 Dextrose (Dextrose 50% 50 Ml Syringe) 25 - 50 ml IV UD PRN; Protocol PRN Reason: Hypoglycemia Protocol Stop: 10/22/20 20:03 Diltiazem HCl (Diltiazem Hcl 240 Mg Capcr) 240 mg PO QAM [facility] Stop: 10/23/20 08:59 Last Admin: 09/23/20 08:58 Dose: 240 mg Documented by: Docusate Sodium (Docusate Sodium 100 Mg Cap) 200 mg PO BID JEREMI Stop: 10/22/20 20:59 Last Admin: 09/23/20 08:56 Dose: 200 mg Documented by: Duloxetine HCl (Duloxetine Hcl 60 Mg Cap) 60 mg PO HS JEREMI Stop: 10/22/20 20:59 Last Admin: 09/22/20 20:57 Dose: 60 mg Documented by: Glucagon (Glucagon For Inj 1 Mg Vial) 1 mg SQ UD PRN; Protocol PRN Reason: Hypoglycemia Protocol Stop: 10/22/20 20:03 Glucose (Glucose 10 Tabs/Tube) 4 - 8 tabs PO UD PRN; Protocol PRN Reason: Hypoglycemia Protocol Stop: 10/22/20 20:03 Glucose (Glucose 40% Gel 15 Gm Tube) 15 - 30 gm PO UD PRN; Protocol PRN Reason: Hypoglycemia Protocol Stop: 10/22/20 20:03 Insulin Aspart (Insulin Aspart 100 Units/Ml 3 Ml Pen) 0 units SC ACHS JEREMI Stop: 10/22/20 20:59 Last Admin: 09/23/20 12:06 Dose: 17 units Documented by: Insulin Glargine (Insulin Glargine Solostar 100 Units/Ml 3 Ml Pen) 25 units SC BID JEREMI Stop: 10/22/20 20:59 Last Admin: 09/23/20 08:58 Dose: 25 units Documented by: Levothyroxine Sodium (Levothyroxine Sodium 100 Mcg Tablet) 100 mcg PO DAILYBB JEREMI Stop: 10/23/20 06:29 Last Admin: 09/23/20 05:59 Dose: 100 mcg Documented by: Losartan Potassium (Losartan Potassium 25 Mg Tab) 25 mg PO QAM JEREMI Stop: 10/23/20 08:59 Last Admin: 09/23/20 08:57 Dose: 25 mg Documented by: Metoclopramide HCl (Metoclopramide Hcl 10 Mg Tablet) 10 mg PO QID JEREMI Stop: 10/22/20 20:59 Last Admin: 09/23/20 13:07 Dose: 10 mg Documented by: Metoprolol Succinate (Metoprolol Succ 50mg Ext Rel Tab) 50 mg PO QAM [facility] Stop: 10/23/20 12:44 Last Admin: 09/23/20 13:07 Dose: 50 mg Documented by: Miconazole Nitrate (Miconazole Nitrate Powder 43 Gm) 1 appln EXT BID JEREMI Stop: 10/23/20 08:59 Last Admin: 09/23/20 09:33 Dose: 1 appln Documented by: Mirabegron (Mirabegron Er 25 Mg Tab) 50 mg PO QAM [facility] Stop: 10/23/20 08:59 Last Admin: 09/23/20 08:57 Dose: 50 mg Documented by: Miscellaneous (Creon: Order Awaiting Action) 1 ea N/A QS [facility] Stop: 10/23/20 20:44 Miscellaneous (Carbohydrates For Hypoglycemia ) 15 - 30 gm PO UD PRN PRN Reason: Hypoglycemia Protocol Stop: 10/22/20 20:03 Multi-Ingredient Cream (Eucerin Cr 120 Gm Jar) 1 appln EXT QSHIFT [facility] Stop: 10/23/20 15:59 Ondansetron HCl (Ondansetron Inj 2 Mg/Ml 2 Ml Vial) 4 mg IV Q6H PRN PRN Reason: Nausea Stop: 10/22/20 20:03 Polyethylene Glycol (Polyethylene (Miralax) 17 Gm Pack) 17 gm PO DAILY PRN PRN Reason: Constipation Stop: 10/22/20 20:03 Rivaroxaban (Rivaroxaban 20 Mg Tab) 20 mg PO QPM JEREMI Stop: 10/22/20 20:59 Last Admin: 09/22/20 20:57 Dose: 20 mg Documented by: Ropinirole HCl (Ropinirole Hcl 1 Mg Tablet) 1 mg PO TID [facility] Stop: 10/22/20 20:59 Last Admin: 09/23/20 13:07 Dose: 1 mg Documented by: Sucralfate (Sucralfate 1 Gm Tab) 1 gm PO QID@0700,1100,1600,2100 [facility] Stop: 10/22/20 20:59 Last Admin: 09/23/20 12:04 Dose: 1 gm Documented by: PG Care Time/CCT Total # of Minutes Spent Total Time Spent with Patient: Total time spent is greater than 50% in coordination of care (as documented) at patient's floor/unit and/or counseling patient: Coding Level of Care Code 89422 Office/Outpt Visit, New Diagnoses Paroxysmal atrial flutter I48.92 Paroxysmal atrial fibrillation I48.0 Hypertension I10 Hypertension type: essential hypertension Hyperlipidemia E78.5 Hyperlipidemia type: unspecified (1) Hyperlipidemia Hyperlipidemia type: unspecified Qualified Code(s): E78.5 - Hyperlipidemia, unspecified (2) Hypertension Hypertension type: essential hypertension Qualified Code(s): I10 - Essential (primary) hypertension
[2020-09-23] MEDS: EUCERIN CR 120 GM JAR EXT SCH (16:38)
--- NOTE | 2020-09-23 18:37 | Hospitalist Progress Note ---
Date of Service September 23, 2020 Assessment & Plan (1) Atrial fibrillation with rapid ventricular response: Patient spontaneously converted Good response with diltiazem Continue Toprol-XL Continue anticoagulation with rivaroxaban Cardiology consulted. Appreciate their input Continue on telemetry Discharge home on current meds (2) Chronic obstructive pulmonary disease: Chronic home O2 use of 2 L/min by nasal cannula Currently without bronchospasm or shortness of breath No exacerbation of COPD Continue usual home medications (3) Diabetes: Poorly controlled Hemoglobin A1c 11.2% Diabetic education appreciated Continue diabetic diet Home medications include Lantus 50 units at bedtime and Insulin aspart as directed Would benefit from endocrinology referral and follow-up Continue Lantus 25 Units twice daily and NovoLog sliding scale while inpatient (4) Hypertension: Continue diltiazem losartan and Toprol Outpatient follow-up with cardiology (5) On home oxygen therapy: COPD Chronically on 2 L/min by nasal cannula SaO2 Adequate (6) Ambulatory dysfunction: Uses a walker at home but states that she usually just stays in a lift chair recliner due to instability Sleeps in the recliner No reported falls PT eval and treatment ordered. (7) Lymphedema: Chronic lymphedema for several years Dry scaly lower extremities Apply Eucerin cream every shift Wound care consult requested There are some areas with some minimal drainage Outpatient management with PCP Await wound care consult as she may benefit from outpatient wound care (8) DVT prophylaxis: Continue rivaroxaban Ambulate as tolerated with assistance Physical therapy consulted Admission and Anticipated Discharge Date Admission Date: September 22, 2020 Subjective Attending: Dr. Romano Patient seen and examined at bedside. Feeling better. Unaware of arrhythmias. Feels somewhat weak. Some pain to left lower extremity.Denies fever, sweats, rigors. No shortness of breath. No chest pain or tightness. No other acute complaints. Review of Systems Review of Systems: All systems reviewed & are unremarkable except as noted in Subjective Physical Exam Physical Exam: GENERAL : No acute distress EYES: No icterus, gaze conjugate NOSE: No evidence of epistaxis MOUTH: No lesions or candidiasis NECK: Supple LUNGS: CTA B/L, no wheezes, rales or rhonchi HEART: Regular, rate controlled. Telemetry reviewed. Appears to be in normal sinus rhythm ABDOMEN: Soft, NT, ND, BS Present EXTREMITIES: Positive LE edema with chronic venous stasis and dried scaley skin, pedal pulses intact and equal bilaterally. Patient reports good sensation to palpation NEURO: A&OX3 Results & Data Results & Data ([facility]) Vital Signs (Past 12 Hours) Vital Signs Temp Pulse Pulse Pulse Resp BP Pulse Ox 09/23/20 16:10 37.1 C 81 18 112/63 95 09/23/20 11:37 36.9 C 89 18 110/54 L 95 09/23/20 11:14 88 09/23/20 08:12 37.0 C 87 18 97/62 L 94 Laboratory Results 09/22/20 14:32 09/23/20 07:24 Diagnostic Findings XR chest 1V portable HISTORY: Atypical Chest Pain COMPARISON: None. FINDINGS: There are low lung volumes. No pneumothorax. No pleural effusions. A few left basilar linear densities favor subsegmental atelectasis or scarring. Otherwise, no focal lung consolidations to suggest pneumonia. The heart is mildly enlarged. There is mild central pulmonary vascular congestion without overt edema. Old, healed left-sided rib fractures. IMPRESSION: Cardiomegaly with mild central pulmonary vascular congestion. ACT 112: Negative or not required by law. Electronically signed by: Jose Lloyd M.D. 09/22/2020 2:54 PM PG Care Time/CCT Total # of Minutes Spent Total Time Spent with Patient: Total time spent is greater than 50% in coordination of care (as documented) at patient's floor/unit and/or counseling patient:35 minutes Coding Level of Care Code 58186 Subseq Hosp Care Lvl 2 Diagnoses Atrial fibrillation with rapid ventricular response I48.91 Chronic obstructive pulmonary disease J44.9 COPD type: unspecified COPD Diabetes E11.69; Z79.4 Diabetes mellitus type: type 2 Diabetes mellitus intermediate designer insulin use: with intermediate designer use Diabetes mellitus complication status: with other specified complication Hypertension I10 Hypertension type: essential hypertension On home oxygen therapy Z99.81 Ambulatory dysfunction R26.2 Lymphedema I89.0 DVT prophylaxis Z29.9 Time Spent (min) 35 (1) Chronic obstructive pulmonary disease COPD type: unspecified COPD Qualified Code(s): J44.9 - Chronic obstructive pulmonary disease, unspecified (2) Diabetes Diabetes mellitus type: type 2 Diabetes mellitus intermediate designer insulin use: with correction use Diabetes mellitus complication status: with other specified complication Qualified Code(s): E11.69 - Type 2 diabetes mellitus with other specified complication; Z79.4 - ocean transportation intermediary (current) use of insulin (3) Hypertension Hypertension type: essential hypertension Qualified Code(s): I10 - Essential (primary) hypertension
--- NOTE | 2020-09-23 18:48 | XCELERA ---
[id number]
[2020-09-23] MEDS: DULoxetine HCL 60 MG CAP PO SCH (20:53)
[2020-09-23] MEDS: RIVAROXABAN 20 MG TAB PO SCH (20:54)
[2020-09-24] MEDS: EUCERIN CR 120 GM JAR EXT SCH ×4 (03:11→20:50)
--- NOTE | 2020-09-24 05:20 | Electrocardiogram Report ---
Test Reason : Blood Pressure : / mmHG Vent. Rate : 131 BPM Atrial Rate : 277 BPM P-R Int : 000 ms QRS Dur : 088 ms QT Int : 320 ms P-R-T Axes : 000 087 053 degrees QTc Int : 472 ms Atrial flutter with variable A-V block Nonspecific ST abnormality Abnormal ECG When compared with ECG of 22-SEP-2020 13:39, No significant change was found Confirmed by Jason Doe ([id number]) on 09/24/2020 5:20:32 AM Referred By: REFERRED SELF Confirmed By:Jason Doe
--- NOTE | 2020-09-24 05:30 | Electrocardiogram Report ---
Test Reason : Blood Pressure : / mmHG Vent. Rate : 117 BPM Atrial Rate : 278 BPM P-R Int : 000 ms QRS Dur : 102 ms QT Int : 312 ms P-R-T Axes : 000 084 033 degrees QTc Int : 435 ms Atrial flutter with variable A-V block Abnormal ECG When compared with ECG of 22-SEP-2020 14:23, No significant change was found Confirmed by Jason Doe ([id number]) on 09/24/2020 5:29:39 AM Referred By: REFERRED SELF Confirmed By:Jason Doe
--- NOTE | 2020-09-24 05:53 | Electrocardiogram Report ---
Test Reason : Blood Pressure : / mmHG Vent. Rate : 084 BPM Atrial Rate : 090 BPM P-R Int : 000 ms QRS Dur : 084 ms QT Int : 374 ms P-R-T Axes : 000 065 006 degrees QTc Int : 441 ms Sinus rhythm with frequent Premature atrial complexes vs wandering atrial pacemaker Low voltage QRS Cannot rule out Anterior infarct , age undetermined Nonspecific T wave abnormality Abnormal ECG When compared with ECG of 22-SEP-2020 17:47, Sinus rhythm has replaced Atrial flutter Nonspecific T wave abnormality now evident in Anterolateral leads Confirmed by Jason Doe ([id number]) on 09/24/2020 5:52:58 AM Referred By: REFERRED SELF Confirmed By:Jason Doe
[2020-09-24] MEDS: LEVOTHYROXINE SODIUM 100 MCG TABLET PO SCH (06:27)
[2020-09-24] MEDS: SUCRALFATE 1 GM TAB PO SCH ×4 (06:27→20:41)
[2020-09-24] MEDS: METOCLOPRAMIDE HCL 10 MG TABLET PO SCH ×4 (07:44→20:41)
[2020-09-24] MEDS: LOSARTAN POTASSIUM 25 MG TAB PO SCH (07:45)
[2020-09-24] MEDS: rOPINIRole HCL 1 MG TABLET PO SCH ×3 (07:45→20:46)
[2020-09-24] MEDS: MIRABEGRON ER 25 MG TAB PO SCH (07:46)
[2020-09-24] MEDS: DOCUSATE SODIUM 100 MG CAP PO SCH ×2 (07:46→20:42)
[2020-09-24] MEDS: dilTIAZem HCL 240 MG CAPCR PO SCH (07:46)
[2020-09-24] MEDS: METOPROLOL SUCC 50MG EXT REL TAB PO SCH (07:47)
[2020-09-24] MEDS: MICONAZOLE NITRATE POWDER 43 GM EXT SCH ×2 (07:48→20:42)
[2020-09-24] MEDS: INSULIN GLARGINE SOLOSTAR 100 UNITS/ML 3 ML PEN SC SCH ×2 (07:49→20:45)
[2020-09-24] MEDS: INSULIN ASPART 100 UNITS/ML 3 ML PEN SC SCH ×4 (07:53→20:43)
[2020-09-24] MEDS: ACETAMINOPHEN 325 MG TAB PO PRN (08:00)
[2020-09-24 08:15] LABS: BUN Creatinine Ratio 16.9 (10-20); Calcium 9.1 mg/dl (8.5-10.1); Creatinine Clr Calc Pharmacy 68.3 ml/min; Est GFR (Non-African American) 62.1
--- NOTE | 2020-09-24 10:22 | Cardiology Progress Note ---
Date of Service September 24, 2020 Assessment & Plan (1) Paroxysmal atrial flutter: (2) Paroxysmal atrial fibrillation: (3) Hypertension: (4) Hyperlipidemia: ASSESSMENT/PLAN: 1. Atrial flutter with rapid ventricular response: She spontaneously converted on 09/22/2020. On 09/23/2020, she reverted back to AFib and then atrial flutter for some period of time however on beta-rehana and diltiazem, her heart rate remain well controlled without any significant change in heart rate when hiwot nging from rhythm to rhythm. She is asymptomatic. Continue anticoagulation for stroke risk reduction. Continue rate control strategy as it appears to be working well. 2. Paroxysmal atrial fibrillation: Presented with atrial flutter however currently in atrial fibrillation. Heart rate well controlled. Asymptomatic. Continue rate control strategy with her home med of diltiazem and new medication metoprolol. Continue anticoagulation for stroke risk reduction. 3. Hypertension: Blood pressure has been mostly normotensive. Most recent blood pressure slightly hypotensive. If her blood pressure becomes more consistently hypotensive, could consider holding or discontinuing losartan while continuing her rate control medications. She is asymptomatic. 4. Dyslipidemia: Most recent lipids not known as she does not follow locally. She has not tolerated several statin therapies in the past. As per her PCP. Depending on her values, could consider non statin therapy. 5. Lymphedema: Suggested lymphedema clinic but she apparently has attended this in the past without great results. 6. Disposition: Cardiology will sign off at this time. Please call with any other questions or concerns. She would like to be followed in the [place] area as it is much more convenient for her. [place] office was also offered but still not convenient for her. Recommend that she establishes care with cardiology in her hometown area. Patient care communicated with Dr. Romano of the primary hospitalist service. Admission and Anticipated Discharge Date Admission Date: September 22, 2020 Subjective She feels well today. She would like to go home today. She denies chest pain, shortness of breath, syncope, near-syncope, palpitations, or worsening edema. She denies bleeding. On telemetry, it was noted that she was in sinus rhythm on 09/23/2020 until approximately 7:35 p.m. when she reverted to atrial fibrillation and then atrial flutter. On telemetry this morning she appears to be in AFib. There was no significant change in her heart rates when changing rhythms. Her heart rate has been well controlled. Review of systems: As above. Physical Exam Physical Exam: Gen.: No acute distress. Alert and oriented. HEENT: Anicteric sclera. Neck: No JVD. Cardiac: Irregularly irregular with normal heart rate. Normal S1-S2. No murmurs, rubs, or gallops. Pulmonary: Clear to auscultation bilaterally without wheezes, rales, or rhonchi. Abdomen: Soft, nontender, nondistended, with normoactive bowel sounds. No bruits noted. Extremities: 2+ radial pulses bilaterally. 2+ posterior tibialis pulses bilaterally. Bilateral lower extremity lymphedema without significant pitting edema. No cyanosis. Psychiatric: Affect appears appropriate. Results & Data ([facility]) Vital Signs (Past 12 Hours) Vital Signs Temp Pulse Pulse Resp BP Pulse Ox 09/24/20 08:00 36.8 C 82 16 99/66 L 97 09/24/20 03:00 37.1 C 80 18 104/52 L 90 09/23/20 23:04 37.0 C 68 19 111/50 L 95 09/23/20 23:00 77 Laboratory Results Laboratory Results - last 24 hr 09/23/20 09/23/20 09/23/20 11:19 16:26 20:37 Sodium Potassium Chloride Carbon Dioxide Anion Gap BUN Creatinine Est Cr Clr Drug Dosing Est GFR ( Amer) Est GFR (Non-Af Amer) BUN/Creatinine Ratio Glucose POC Glucose 249 H 170 H 209 H Calcium 09/24/20 09/24/20 07:10 07:43 Sodium 137 Potassium 4.0 Chloride 102 Carbon Dioxide 33 H Anion Gap 2.0 L BUN 15 Creatinine 0.90 Est Cr Clr Drug Dosing 68.3 Est GFR ( Amer) 72.0 Est GFR (Non-Af Amer) 62.1 BUN/Creatinine Ratio 16.9 Glucose 199 H POC Glucose 227 H Calcium 9.1 Diagnostic Findings Telemetry personally reviewed as noted above in HPI. Currently she appears to be a in a rate controlled atrial fibrillation on telemetry. ECG personally: ECG 09/24/2020 at 7:21 a.m.: AFib 88 beats per minute. Nonspecific T-wave abnormality. Medications Administered Current Inpatient Medications Acetaminophen (Acetaminophen 325 Mg Tab) 650 mg PO Q4H PRN PRN Reason: Pain or Fever Stop: 10/22/20 20:03 Last Admin: 09/24/20 08:00 Dose: 650 mg Documented by: Albuterol (Albuterol Hfa 8 Gm Inhaler) 2 puffs INH Q6R PRN PRN Reason: Cough or Wheezing Stop: 10/22/20 20:03 Dextrose (Dextrose 50% 50 Ml Syringe) 25 - 50 ml IV UD PRN; Protocol PRN Reason: Hypoglycemia Protocol Stop: 10/22/20 20:03 Diltiazem HCl (Diltiazem Hcl 240 Mg Capcr) 240 mg PO QAM [facility] Stop: 10/23/20 08:59 Last Admin: 09/24/20 07:46 Dose: 240 mg Documented by: Docusate Sodium (Docusate Sodium 100 Mg Cap) 200 mg PO BID [facility] Stop: 10/22/20 20:59 Last Admin: 09/24/20 07:46 Dose: 200 mg Documented by: Duloxetine HCl (Duloxetine Hcl 60 Mg Cap) 60 mg PO HS [facility] Stop: 10/22/20 20:59 Last Admin: 09/23/20 20:53 Dose: 60 mg Documented by: Glucagon (Glucagon For Inj 1 Mg Vial) 1 mg SQ UD PRN; Protocol PRN Reason: Hypoglycemia Protocol Stop: 10/22/20 20:03 Glucose (Glucose 10 Tabs/Tube) 4 - 8 tabs PO UD PRN; Protocol PRN Reason: Hypoglycemia Protocol Stop: 10/22/20 20:03 Glucose (Glucose 40% Gel 15 Gm Tube) 15 - 30 gm PO UD PRN; Protocol PRN Reason: Hypoglycemia Protocol Stop: 10/22/20 20:03 Insulin Aspart (Insulin Aspart 100 Units/Ml 3 Ml Pen) 0 units SC ACHS [facility] Stop: 10/22/20 20:59 Last Admin: 09/24/20 07:53 Dose: 16 units Documented by: Insulin Glargine (Insulin Glargine Solostar 100 Units/Ml 3 Ml Pen) 25 units SC BID [facility] Stop: 10/22/20 20:59 Last Admin: 09/24/20 07:49 Dose: 25 units Documented by: Levothyroxine Sodium (Levothyroxine Sodium 100 Mcg Tablet) 100 mcg PO DAILYBB [facility] Stop: 10/23/20 06:29 Last Admin: 09/24/20 06:27 Dose: 100 mcg Documented by: Losartan Potassium (Losartan Potassium 25 Mg Tab) 25 mg PO QAM [facility] Stop: 10/23/20 08:59 Last Admin: 09/24/20 07:45 Dose: 25 mg Documented by: Metoclopramide HCl (Metoclopramide Hcl 10 Mg Tablet) 10 mg PO QID [facility] Stop: 10/22/20 20:59 Last Admin: 09/24/20 07:44 Dose: 10 mg Documented by: Metoprolol Succinate (Metoprolol Succ 50mg Ext Rel Tab) 50 mg PO QAM [facility] Stop: 10/23/20 12:44 Last Admin: 09/24/20 07:47 Dose: 50 mg Documented by: Miconazole Nitrate (Miconazole Nitrate Powder 43 Gm) 1 appln EXT BID [facility] Stop: 10/23/20 08:59 Last Admin: 09/24/20 07:48 Dose: 1 appln Documented by: Mirabegron (Mirabegron Er 25 Mg Tab) [facility] [place]: 10/23/20 08:59 Last Admin: 09/24/20 07:46 Dose: 50 mg Documented by: Miscellaneous (Creon: Order Awaiting Action) 1 ea N/A QS [facility] Stop: 10/23/20 20:44 Last Admin: 09/24/20 07:43 Dose: Not Given Documented by: Miscellaneous (Carbohydrates For Hypoglycemia ) 15 - 30 gm PO UD PRN PRN Reason: Hypoglycemia Protocol Stop: 10/22/20 20:03 Multi-Ingredient Cream (Eucerin Cr 120 Gm Jar) 1 appln EXT QSHIFT [facility] Stop: 10/23/20 15:59 Last Admin: 09/24/20 07:43 Dose: 1 appln Documented by: Ondansetron HCl (Ondansetron Inj 2 Mg/Ml 2 Ml Vial) 4 mg IV Q6H PRN PRN Reason: Nausea Stop: 10/22/20 20:03 Polyethylene Glycol (Polyethylene (Miralax) 17 Gm Pack) 17 gm PO DAILY PRN PRN Reason: Constipation Stop: 10/22/20 20:03 Rivaroxaban (Rivaroxaban 20 Mg Tab) 20 mg PO QPM [facility] Stop: 10/22/20 20:59 Last Admin: 09/23/20 20:54 Dose: 20 mg Documented by: Ropinirole HCl (Ropinirole Hcl 1 Mg Tablet) 1 mg PO TID [facility] Stop: 10/22/20 20:59 Last Admin: 09/24/20 07:45 Dose: 1 mg Documented by: Sucralfate (Sucralfate 1 Gm Tab) 1 gm PO QID@0700,1100,1600,2100 [facility] Stop: 10/22/20 20:59 Last Admin: 09/24/20 06:27 Dose: 1 gm Documented by: PG Care Time/CCT Total # of Minutes Spent Total Time Spent with Patient: Total time spent is greater than 50% in coordination of care (as documented) at patient's floor/unit and/or counseling patient: Coding Level of Care Code 90366 Subseq Hosp Care Lvl 3 Diagnoses Paroxysmal atrial flutter I48.92 Paroxysmal atrial fibrillation I48.0 Hypertension I10 Hypertension type: essential hypertension Hyperlipidemia E78.5 Hyperlipidemia type: unspecified (1) Hypertension Hypertension type: essential hypertension Qualified Code(s): I10 - Essential (primary) hypertension (2) Hyperlipidemia Hyperlipidemia type: unspecified Qualified Code(s): E78.5 - Hyperlipidemia, unspecified
--- NOTE | 2020-09-24 15:47 | Hospitalist Progress Note ---
Date of Service September 24, 2020 Assessment & Plan (1) Atrial fibrillation with rapid ventricular response: Patient spontaneously converted, but now back to afib, rates controlled Continue Toprol-XL 50mg Continue anticoagulation with rivaroxaban Cardiology consulted. Appreciate their input Continue on telemetry working on rehab referral (2) Chronic obstructive pulmonary disease: Chronic home O2 use of 2 L/min by nasal cannula Currently without bronchospasm or shortness of breath No exacerbation of COPD Continue usual home medications (3) Diabetes: Poorly controlled Hemoglobin A1c 11.2% Diabetic education appreciated Continue diabetic diet Home medications include Lantus 50 units at bedtime and Insulin aspart as directed Would benefit from endocrinology referral and follow-up Continue Lantus 25 Units twice daily and NovoLog sliding scale while inpatient, sugars well controlled (4) Hypertension: Continue diltiazem 240mg daily, losartan 25mg daily and Toprol 50mg qAM Outpatient follow-up with cardiology she would like to follow up with waste reclaimer in [place] (5) On home oxygen therapy: COPD Chronically on 2 L/min by nasal cannula SaO2 Adequate (6) Ambulatory dysfunction: Uses a walker at home but states that she usually just stays in a lift chair recliner due to instability Sleeps in the recliner No reported falls PT eval and treatment ordered, click score very low at 9 recommend rehab, she agrees, referrals made (7) Lymphedema: Chronic lymphedema for several years Dry scaly lower extremities Apply Eucerin cream every shift Wound care consult requested There are some areas with some minimal drainage Outpatient management with PCP Await wound care consult as she may benefit from outpatient wound care (8) DVT prophylaxis: Continue rivaroxaban Ambulate as tolerated with assistance Physical therapy consulted (9) Acute heart failure with preserved ejection fraction: likely due to afib with RVR resolved with Lasix, lungs are clear, good diuresis monitor volume status Admission and Anticipated Discharge Date Admission Date: September 22, 2020 Subjective patient feeling a little better, still very weak HR remains afib but rates controlled in the 80's stable on 3L, no further signs of heart failure eating and drinking well, had a BM today, making urine she did not do well with therapy, click scores 14 and 9, recommend rehab she is open to rehab placement, CM working on referrals appreciate cardiology note, spoke with Dr. Doe reviewed labs, Cr 0.9 and K is 4.0 Review of Systems Review of Systems: All systems reviewed & are unremarkable except as noted in Subjective Constitutional: + fatigue and + weakness; no fever, no chills and no sweats Respiratory: no cough, no dyspnea and no sputum production Cardiovascular: no chest pain, no palpitations, no syncope and no edema Gastrointestinal: no abdominal pain, no nausea, no vomiting, no constipation and no diarrhea/loose stools Physical Exam Constitutional: WD/WN, vitals as above + obese; no acute distress Neck: trachea midline, no thyromegaly Respiratory: normal respiratory effort, lungs clear to auscultation Cardiovascular: Rate/Rhythm: regular rate and + irregularly irregular Heart Sounds: normal S1 and normal S2; no murmur Vessels: no JVD Extremities: normal capillary refill; no edema Gastrointestinal (Abdomen): normal bowel sounds, soft, nontender, no hepatosplenomegaly Musculoskeletal: Head/Neck/Chest: normocephalic, head atraumatic and neck supple Extremities: extremities normal to inspection and + abnormal strength; no cyanosis, no clubbing and no petechiae Skin: no rashes, warm and dry Neurologic: patellar DTR's 2+ bilat, sensation intact and PERRL, EOMI, accommodation nl, no face palsy, no dysarthria Psychiatric: A+Ox3, euthymic affect Lymphatic: no cervical or axillary lymphadenopathy Results & Data Results & Data ([facility]) Vital Signs (Past 12 Hours) Vital Signs Temp Pulse Pulse Resp BP Pulse Ox 09/24/20 15:03 36.0 C L 18 L 79 18 119/68 96 09/24/20 12:02 36.5 C 81 20 105/62 94 09/24/20 08:00 36.8 C 82 16 99/66 L 97 Laboratory Results Laboratory Results - last 24 hr 09/23/20 09/23/20 09/24/20 16:26 20:37 07:10 Sodium 137 Potassium 4.0 Chloride 102 Carbon Dioxide 33 H Anion Gap 2.0 L BUN 15 Creatinine 0.90 Est Cr Clr Drug Dosing 68.3 Est GFR ( Amer) 72.0 Est GFR (Non-Af Amer) 62.1 BUN/Creatinine Ratio 16.9 Glucose 199 H POC Glucose 170 H 209 H Calcium 9.1 09/24/20 09/24/20 07:43 11:31 Sodium Potassium Chloride Carbon Dioxide Anion Gap BUN Creatinine Est Cr Clr Drug Dosing Est GFR ( Amer) Est GFR (Non-Af Amer) BUN/Creatinine Ratio Glucose POC Glucose 227 H 208 H Calcium Medications Administered Current Inpatient Medications Acetaminophen (Acetaminophen 325 Mg Tab) 650 mg PO Q4H PRN PRN Reason: Pain or Fever Stop: 10/22/20 20:03 Last Admin: 09/24/20 08:00 Dose: 650 mg Documented by: Albuterol (Albuterol Hfa 8 Gm Inhaler) 2 puffs INH Q6R PRN PRN Reason: Cough or Wheezing Stop: 10/22/20 20:03 Dextrose (Dextrose 50% 50 Ml Syringe) 25 - 50 ml IV UD PRN; Protocol PRN Reason: Hypoglycemia Protocol Stop: 10/22/20 20:03 Diltiazem HCl (Diltiazem Hcl 240 Mg Capcr) 240 mg PO QAM [facility] Stop: 10/23/20 08:59 Last Admin: 09/24/20 07:46 Dose: 240 mg Documented by: Docusate Sodium (Docusate Sodium 100 Mg Cap) 200 mg PO BID [facility] Stop: 10/22/20 20:59 Last Admin: 09/24/20 07:46 Dose: 200 mg Documented by: Duloxetine HCl (Duloxetine Hcl 60 Mg Cap) 60 mg PO HS [facility] Stop: 10/22/20 20:59 Last Admin: 09/23/20 20:53 Dose: 60 mg Documented by: Glucagon (Glucagon For Inj 1 Mg Vial) 1 mg SQ UD PRN; Protocol PRN Reason: Hypoglycemia Protocol Stop: 10/22/20 20:03 Glucose (Glucose 10 Tabs/Tube) 4 - 8 tabs PO UD PRN; Protocol PRN Reason: Hypoglycemia Protocol Stop: 10/22/20 20:03 Glucose (Glucose 40% Gel 15 Gm Tube) 15 - 30 gm PO UD PRN; Protocol PRN Reason: Hypoglycemia Protocol Stop: 10/22/20 20:03 Insulin Aspart (Insulin Aspart 100 Units/Ml 3 Ml Pen) 0 units SC ACHS [facility] Stop: 10/22/20 20:59 Last Admin: 09/24/20 13:23 Dose: 18 units Documented by: Insulin Glargine (Insulin Glargine Solostar 100 Units/Ml 3 Ml Pen) 25 units SC BID [facility] Stop: 10/22/20 20:59 Last Admin: 09/24/20 07:49 Dose: 25 units Documented by: Levothyroxine Sodium (Levothyroxine Sodium 100 Mcg Tablet) 100 mcg PO DAILYBB [facility] Stop: 10/23/20 06:29 Last Admin: 09/24/20 06:27 Dose: 100 mcg Documented by: Losartan Potassium (Losartan Potassium 25 Mg Tab) 25 mg PO QAM [facility] Stop: 10/23/20 08:59 Last Admin: 09/24/20 07:45 Dose: 25 mg Documented by: Metoclopramide HCl (Metoclopramide Hcl 10 Mg Tablet) 10 mg PO QID [facility] Stop: 10/22/20 20:59 Last Admin: 09/24/20 13:21 Dose: 10 mg Documented by: Metoprolol Succinate (Metoprolol Succ 50mg Ext Rel Tab) [facility] [place] Stop: 10/23/20 12:44 Last Admin: 09/24/20 07:47 Dose: 50 mg Documented by: Miconazole Nitrate (Miconazole Nitrate Powder 43 Gm) 1 appln EXT BID [facility] Stop: 10/23/20 08:59 Last Admin: 09/24/20 07:48 Dose: 1 appln Documented by: Mirabegron (Mirabegron Er 25 Mg Tab) 50 mg PO [facility] Stop: 10/23/20 08:59 Last Admin: 09/24/20 07:46 Dose: 50 mg Documented by: Miscellaneous (Creon: Order Awaiting Action) 1 ea N/A QS [facility] Stop: 10/23/20 20:44 Last Admin: 09/24/20 15:25 Dose: Not Given Documented by: Miscellaneous (Carbohydrates For Hypoglycemia ) 15 - 30 gm PO UD PRN PRN Reason: Hypoglycemia Protocol Stop: 10/22/20 20:03 Multi-Ingredient Cream (Eucerin Cr 120 Gm Jar) 1 appln EXT QSHIFT [facility] Stop: 10/23/20 15:59 Last Admin: 09/24/20 15:26 Dose: 1 appln Documented by: Ondansetron HCl (Ondansetron Inj 2 Mg/Ml 2 Ml Vial) 4 mg IV Q6H PRN PRN Reason: Nausea Stop: 10/22/20 20:03 Polyethylene Glycol (Polyethylene (Miralax) 17 Gm Pack) 17 gm PO DAILY PRN PRN Reason: Constipation Stop: 10/22/20 20:03 Rivaroxaban (Rivaroxaban 20 Mg Tab) 20 mg PO QPM [facility] Stop: 10/22/20 20:59 Last Admin: 09/23/20 20:54 Dose: 20 mg Documented by: Ropinirole HCl (Ropinirole Hcl 1 Mg Tablet) 1 mg PO TID [facility] Stop: 10/22/20 20:59 Last Admin: 09/24/20 13:21 Dose: 1 mg Documented by: Sucralfate (Sucralfate 1 Gm Tab) 1 gm PO QID@0700,1100,1600,2100 [facility] Stop: 10/22/20 20:59 Last Admin: 09/24/20 15:26 Dose: 1 gm Documented by: PG Care Time/CCT Total # of Minutes Spent Total Time Spent with Patient: Total time spent is greater than 50% in coordination of care (as documented) at patient's floor/unit and/or counseling patient: Coding Level of Care Code 43729 Subseq Hosp Care Lvl 3 Diagnoses Atrial fibrillation with rapid ventricular response I48.91 Chronic obstructive pulmonary disease J44.9 COPD type: unspecified COPD Diabetes E11.69; Z79.4 Diabetes mellitus complication status: with other specified complication Diabetes mellitus fdc insulin use: with brick unloader tender use Diabetes mellitus type: type 2 Hypertension I10 Hypertension type: essential hypertension On home oxygen therapy Z99.81 Ambulatory dysfunction R26.2 Lymphedema I89.0 DVT prophylaxis Z29.9 Acute heart failure with preserved ejection fraction I50.31 (1) Diabetes Diabetes mellitus complication status: with other specified complication Diabetes mellitus fdc insulin use: with brick unloader tender use Diabetes mellitus type: type 2 Qualified Code(s): E11.69 - Type 2 diabetes mellitus with other specified complication; Z79.4 - detention (current) use of insulin (2) Chronic obstructive pulmonary disease COPD type: unspecified COPD Qualified Code(s): J44.9 - Chronic obstructive pulmonary disease, unspecified (3) Hypertension Hypertension type: essential hypertension Qualified Code(s): I10 - Essential (primary) hypertension
--- NOTE | 2020-09-24 16:43 | Billing Data ---
Date of Service September 22, 2020 Coding Level of Care Code 48589 Initial Inpt Care Lvl 3
[2020-09-24] MEDS: RIVAROXABAN 20 MG TAB PO SCH (20:41)
[2020-09-24] MEDS: DULoxetine HCL 60 MG CAP PO SCH (20:41)
--- NOTE | 2020-09-25 06:46 | Electrocardiogram Report ---
Test Reason : Blood Pressure : / mmHG Vent. Rate : 088 BPM Atrial Rate : 078 BPM P-R Int : 000 ms QRS Dur : 088 ms QT Int : 406 ms P-R-T Axes : 000 091 026 degrees QTc Int : 491 ms Poor data quality, interpretation may be adversely affected Atrial fibrillation Rightward axis Nonspecific T wave abnormality Abnormal ECG When compared with ECG of 23-SEP-2020 06:24, Atrial fibrillation has replaced Sinus rhythm Minimal criteria for Anterior infarct are no longer Present QT has lengthened Confirmed by Jason Doe ([id number]) on 09/25/2020 6:46:16 AM Referred By: REFERRED SELF Confirmed By:Jason Doe
--- NOTE | 2020-09-25 06:48 | Electrocardiogram Report ---
Test Reason : Blood Pressure : / mmHG Vent. Rate : 088 BPM Atrial Rate : 072 BPM P-R Int : 000 ms QRS Dur : 084 ms QT Int : 384 ms P-R-T Axes : 000 089 -05 degrees QTc Int : 465 ms Poor data quality, interpretation may be adversely affected Atrial fibrillation Nonspecific ST and T wave abnormality Abnormal ECG When compared with ECG of 24-SEP-2020 07:21, No significant change Confirmed by Jason Doe ([id number] on 09/25/2020 6:48:05 AM Referred By: REFERRED SELF Confirmed By:Jason Doe
[2020-09-25 07:04] LABS: BUN Creatinine Ratio 15.9 (10-20); Calcium 9.3 mg/dl (8.5-10.1); Creatinine Clr Calc Pharmacy 65.3 ml/min; Est GFR (African American) 68.3; Est GFR (Non-African American) 58.9; Potassium 4.7 mmol/L (3.5-5.1)
[2020-09-25] MEDS: LEVOTHYROXINE SODIUM 100 MCG TABLET PO SCH (07:34)
[2020-09-25] MEDS: ACETAMINOPHEN 325 MG TAB PO PRN (07:36)
[2020-09-25] MEDS: INSULIN ASPART 100 UNITS/ML 3 ML PEN SC SCH ×4 (07:37→20:17)
[2020-09-25] MEDS: METOPROLOL SUCC 50MG EXT REL TAB PO SCH (07:38)
[2020-09-25] MEDS: rOPINIRole HCL 1 MG TABLET PO SCH ×3 (07:38→20:13)
[2020-09-25] MEDS: SUCRALFATE 1 GM TAB PO SCH ×4 (07:39→20:12)
[2020-09-25] MEDS: METOCLOPRAMIDE HCL 10 MG TABLET PO SCH ×4 (07:39→20:12)
[2020-09-25] MEDS: MIRABEGRON ER 25 MG TAB PO SCH (07:39)
[2020-09-25] MEDS: DOCUSATE SODIUM 100 MG CAP PO SCH ×2 (07:40→20:13)
[2020-09-25] MEDS: INSULIN GLARGINE SOLOSTAR 100 UNITS/ML 3 ML PEN SC SCH ×2 (07:40→20:18)
[2020-09-25] MEDS: LOSARTAN POTASSIUM 25 MG TAB PO SCH (07:40)
[2020-09-25] MEDS: dilTIAZem HCL 240 MG CAPCR PO SCH (07:41)
[2020-09-25] MEDS: MICONAZOLE NITRATE POWDER 43 GM EXT SCH ×2 (07:41→20:15)
[2020-09-25] MEDS: EUCERIN CR 120 GM JAR EXT SCH ×3 (07:42→23:19)
--- NOTE | 2020-09-25 11:50 | Hospitalist Progress Note ---
Date of Service September 25, 2020 Assessment & Plan (1) Atrial fibrillation with rapid ventricular response: Patient spontaneously converted, but now back to afib, rates controlled Continue Toprol-XL 50mg, continue home dose of Diltiazem 240mg daily Continue anticoagulation with rivaroxaban Cardiology consulted. Appreciate their input will transfer to medical floor, HR controlled for 48 hours (2) Chronic obstructive pulmonary disease: Chronic home O2 use of 2 L/min by nasal cannula, up a little at 3L today Currently without bronchospasm or shortness of breath No exacerbation of COPD Continue usual home medications (3) Diabetes: Poorly controlled Hemoglobin A1c 11.2% Diabetic education appreciated Continue diabetic diet Home medications include Lantus 50 units at bedtime and Insulin aspart as di rected Would benefit from endocrinology referral and follow-up Continue Lantus 25 Units twice daily and NovoLog sliding scale while inpatient, sugars ranging 150-220 no hypoglycemic episodes (4) Hypertension: Continue diltiazem 240mg daily, losartan 25mg daily and Toprol 50mg qAM Outpatient follow-up with cardiology she would like to follow up with policy intern in [place] slight volume overload, will give Lasix 20mg PO now and follow response (5) On home oxygen therapy: COPD Chronically on 2 L/min by nasal cannula SaO2 Adequate (6) Ambulatory dysfunction: Uses a walker at home but states that she usually just stays in a lift chair recliner due to instability Sleeps in the recliner No reported falls PT eval and treatment ordered, click score very low at 9 recommend rehab, she agrees, referrals made but insurance closed over weekend (7) Lymphedema: Chronic lymphedema for several years Dry scaly lower extremities Apply Eucerin cream every shift Wound care consult requested There are some areas with some minimal drainage Outpatient management with PCP Await wound care consult as she may benefit from outpatient wound care (8) DVT prophylaxis: Continue rivaroxaban Ambulate as tolerated with assistance Physical therapy consulted (9) Acute heart failure with preserved ejection fraction: likely due to afib with RVR resolved with Lasix, lungs are clear, good diuresis monitor volume status, a little edema today, give Lasix 20mg PO now Admission and Anticipated Discharge Date Admission Date: September 22, 2020 Subjective patient stable, eating lunch, no distress HR is well controlled, 90-100's, afib lungs clear, some edema in legs, weight going up slightly from 120kg to 121kg, was 123kg on admission labs reviewed, Cr 0.9, K 4.7 not normally on Lasix, will give 20mg PO now and see how she responds discussed with her that her insurance company closed on weekend, will wait for SNF on Sunday hopefully safe to downgrade to medical floor Review of Systems Review of Systems: All systems reviewed & are unremarkable except as noted in Subjective Respiratory: + dyspnea on exertion Cardiovascular: + edema (slight) Physical Exam Constitutional: WD/WN, vitals as above + obese; no acute distress Neck: trachea midline, no thyromegaly Respiratory: normal respiratory effort, lungs clear to auscultation Cardiovascular: Rate/Rhythm: regular rate and + irregularly irregular Heart Sounds: normal S1 and normal S2; no murmur Vessels: no JVD Extremities: normal capillary refill and + edema (trace bilaterally) Gastrointestinal (Abdomen): normal bowel sounds, soft, nontender, no hepatosplenomegaly Musculoskeletal: Head/Neck/Chest: normocephalic, head atraumatic and neck supple Extremities: extremities normal to inspection and + abnormal strength; no cyanosis, no clubbing and no petechiae Skin: no rashes, warm and dry Neurologic: patellar DTR's 2+ bilat, sensation intact and PERRL, EOMI, accommodation nl, no face palsy, no dysarthria Psychiatric: A+Ox3, euthymic affect Lymphatic: no cervical or axillary lymphadenopathy Results & Data Results & Data ([facility]) Vital Signs (Past 12 Hours) Vital Signs Temp Pulse Pulse Resp BP Pulse Ox 09/25/20 11:08 37.0 C 92 H 16 106/74 97 09/25/20 07:31 94 H 09/25/20 07:12 37.0 C 95 H 18 103/65 96 09/25/20 02:35 36.8 C 95 H 15 114/67 92 09/25/20 00:00 91 H Laboratory Results Laboratory Results - last 24 hr 09/24/20 09/24/20 09/25/20 16:29 20:36 06:15 Sodium 138 Potassium 4.7 D Chloride 103 Carbon Dioxide 35 H Anion Gap 1.0 L BUN 15 Creatinine 0.94 Est Cr Clr Drug Dosing 65.3 Est GFR ( Amer) 68.3 Est GFR (Non-Af Amer) 58.9 BUN/Creatinine Ratio 15.9 Glucose 171 H POC Glucose 149 H 120 H Calcium 9.3 09/25/20 09/25/20 07:10 11:06 Sodium Potassium Chloride Carbon Dioxide Anion Gap BUN Creatinine Est Cr Clr Drug Dosing Est GFR ( Amer) Est GFR (Non-Af Amer) BUN/Creatinine Ratio Glucose POC Glucose 214 H 196 H Calcium Medications Administered Current Inpatient Medications Acetaminophen (Acetaminophen 325 Mg Tab) 650 mg PO Q4H PRN PRN Reason: Pain or Fever Stop: 10/22/20 20:03 Last Admin: 09/25/20 07:36 Dose: 650 mg Documented by: Albuterol (Albuterol Hfa 8 Gm Inhaler) 2 puffs INH Q6R PRN PRN Reason: Cough or Wheezing Stop: 10/22/20 20:03 Dextrose (Dextrose 50% 50 Ml Syringe) 25 - 50 ml IV UD PRN; Protocol PRN Reason: Hypoglycemia Protocol Stop: 10/22/20 20:03 Diltiazem HCl (Diltiazem Hcl 240 Mg Capcr) 240 mg PO QAM JEREMI Stop: 10/23/20 08:59 Last Admin: 09/25/20 07:41 Dose: 240 mg Documented by: Docusate Sodium (Docusate Sodium 100 Mg Cap) 200 mg PO BID JEREMI Stop: 10/22/20 20:59 Last Admin: 09/25/20 07:40 Dose: Not Given Documented by: Duloxetine HCl (Duloxetine Hcl 60 Mg Cap) 60 mg PO HS [facility] Stop: 10/22/20 20:59 Last Admin: 09/24/20 20:41 Dose: 60 mg Documented by: Furosemide (Furosemide 20 Mg Tab) 20 mg PO NOW ONE Stop: 09/25/20 11:52 Glucagon (Glucagon For Inj 1 Mg Vial) 1 mg SQ UD PRN; Protocol PRN Reason: Hypoglycemia Protocol Stop: 10/22/20 20:03 Glucose (Glucose 10 Tabs/Tube) 4 - 8 tabs PO UD PRN; Protocol PRN Reason: Hypoglycemia Protocol Stop: 10/22/20 20:03 Glucose (Glucose 40% Gel 15 Gm Tube) 15 - 30 gm PO UD PRN; Protocol PRN Reason: Hypoglycemia Protocol Stop: 10/22/20 20:03 Insulin Aspart (Insulin Aspart 100 Units/Ml 3 Ml Pen) 0 units SC ACHS JEREMI Stop: 10/22/20 20:59 Last Admin: 09/25/20 11:31 Dose: 20 units Documented by: Insulin Glargine (Insulin Glargine Solostar 100 Units/Ml 3 Ml Pen) 25 units SC BID [facility] Stop: 10/22/20 20:59 Last Admin: 09/25/20 07:40 Dose: 25 units Documented by: Levothyroxine Sodium (Levothyroxine Sodium 100 Mcg Tablet) 100 mcg PO DAILYBB [facility] Stop: 10/23/20 06:29 Last Admin: 09/25/20 07:34 Dose: 100 mcg Documented by: Losartan Potassium (Losartan Potassium 25 Mg Tab) [facility] [place] Stop: 10/23/20 08:59 Last Admin: 09/25/20 07:40 Dose: 25 mg Documented by: Metoclopramide HCl (Metoclopramide Hcl 10 Mg Tablet) 10 mg PO QID [facility] Stop: 10/22/20 20:59 Last Admin: 09/25/20 07:39 Dose: 10 mg Documented by: Metoprolol Succinate (Metoprolol Succ 50mg Ext Rel Tab) 50 mg PO [facility] Stop: 10/23/20 12:44 Last Admin: 09/25/20 07:38 Dose: 50 mg Documented by: Miconazole Nitrate (Miconazole Nitrate Powder 43 Gm) 1 appln EXT BID [facility] Stop: 10/23/20 08:59 Last Admin: 09/25/20 07:41 Dose: 1 appln Documented by: Mirabegron (Mirabegron Er 25 Mg Tab) 50 [facility] [place] Stop: 10/23/20 08:59 Last Admin: 09/25/20 07:39 Dose: 50 mg Documented by: Miscellaneous (Creon: Order Awaiting Action) 1 ea N/A QS [facility] Stop: 10/23/20 20:44 Last Admin: 09/25/20 07:40 Dose: Not Given Documented by: Miscellaneous (Carbohydrates For Hypoglycemia ) 15 - 30 gm PO UD PRN PRN Reason: Hypoglycemia Protocol Stop: 10/22/20 20:03 Multi-Ingredient Cream (Eucerin Cr 120 Gm Jar) 1 appln EXT QSHIFT [facility] Stop: 10/23/20 15:59 Last Admin: 09/25/20 07:42 Dose: 1 appln Documented by: Ondansetron HCl (Ondansetron Inj 2 Mg/Ml 2 Ml Vial) 4 mg IV Q6H PRN PRN Reason: Nausea Stop: 10/22/20 20:03 Polyethylene Glycol (Polyethylene (Miralax) 17 Gm Pack) 17 gm PO DAILY PRN PRN Reason: Constipation Stop: 10/22/20 20:03 Rivaroxaban (Rivaroxaban 20 Mg Tab) 20 mg PO QPM [facility] Stop: 10/22/20 20:59 Last Admin: 09/24/20 20:41 Dose: 20 mg Documented by: Ropinirole HCl (Ropinirole Hcl 1 Mg Tablet) 1 mg PO TID [facility] Stop: 10/22/20 20:59 Last Admin: 09/25/20 07:38 Dose: 1 mg Documented by: Sucralfate (Sucralfate 1 Gm Tab) 1 gm PO QID@0700,1100,1600,2100 [facility] Stop: 10/22/20 20:59 Last Admin: 09/25/20 10:57 Dose: 1 gm Documented by: PG Care Time/CCT Total # of Minutes Spent Total Time Spent with Patient: Total time spent is greater than 50% in coordination of care (as documented) at patient's floor/unit and/or counseling patient: Coding Level of Care Code 62919 Subseq Hosp Care Lvl 3 Diagnoses Atrial fibrillation with rapid ventricular response I48.91 Chronic obstructive pulmonary disease J44.9 COPD type: unspecified COPD Diabetes E11.69; Z79.4 Diabetes mellitus type: type 2 Diabetes 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 insulin use: with custodial use Diabetes mellitus complication status: with other specified complication Hypertension I10 Hypertension type: essential hypertension On home oxygen therapy Z99.81 Ambulatory dysfunction R26.2 Lymphedema I89.0 DVT prophylaxis Z29.9 Acute heart failure with preserved ejection fraction I50.31 (1) Chronic obstructive pulmonary disease COPD type: unspecified COPD Qualified Code(s): J44.9 - Chronic obstructive pulmonary disease, unspecified (2) Diabetes Diabetes mellitus type: type 2 Diabetes mellitus custodial insulin use: with custodial use Diabetes mellitus complication status: with other specified complication Qualified Code(s): E11.69 - Type 2 diabetes mellitus with other specified complication; Z79.4 - half-way (current) use of insulin (3) Hypertension Hypertension type: essential hypertension Qualified Code(s): I10 - Essential (primary) hypertension
[2020-09-25] MEDS ORDERED: FUROSEMIDE 20 MG TAB PO ONE (11:51)
[2020-09-25] MEDS ORDERED: diphenhydrAMINE Capsule 25 MG CAP PO ONE (19:44)
[2020-09-25] MEDS: RIVAROXABAN 20 MG TAB PO SCH (20:13)
[2020-09-25] MEDS: DULoxetine HCL 60 MG CAP PO SCH (20:14)
[2020-09-26] MEDS: ACETAMINOPHEN 325 MG TAB PO PRN ×2 (03:06→15:22)
[2020-09-26] MEDS: LEVOTHYROXINE SODIUM 100 MCG TABLET PO SCH (06:10)
[2020-09-26] MEDS: SUCRALFATE 1 GM TAB PO SCH ×4 (06:11→20:43)
[2020-09-26 07:22] LABS: Calcium 8.8 mg/dl (8.5-10.1); Creatinine Clr Calc Pharmacy 70.5 ml/min; Est GFR (Non-African American) 63.8
[2020-09-26] MEDS: EUCERIN CR 120 GM JAR EXT SCH ×3 (08:03→21:05)
[2020-09-26] MEDS: MICONAZOLE NITRATE POWDER 43 GM EXT SCH ×2 (08:04→20:44)
[2020-09-26] MEDS: METOPROLOL SUCC 50MG EXT REL TAB PO SCH (08:05)
[2020-09-26] MEDS: rOPINIRole HCL 1 MG TABLET PO SCH ×3 (08:05→20:44)
[2020-09-26] MEDS: MIRABEGRON ER 25 MG TAB PO SCH (08:05)
[2020-09-26] MEDS: LOSARTAN POTASSIUM 25 MG TAB PO SCH (08:05)
[2020-09-26] MEDS: DOCUSATE SODIUM 100 MG CAP PO SCH ×2 (08:05→20:46)
[2020-09-26] MEDS: dilTIAZem HCL 240 MG CAPCR PO SCH (08:06)
[2020-09-26] MEDS: INSULIN GLARGINE SOLOSTAR 100 UNITS/ML 3 ML PEN SC SCH ×2 (08:06→20:47)
[2020-09-26] MEDS: INSULIN ASPART 100 UNITS/ML 3 ML PEN SC SCH ×5 (08:06→20:57)
--- NOTE | 2020-09-26 09:18 | Hospitalist Progress Note ---
Date of Service September 26, 2020 Assessment & Plan (1) Atrial fibrillation with rapid ventricular response: Patient spontaneously converted, but now back to afib, rates controlled Continue Toprol-XL 50mg, continue home dose of Diltiazem 240mg daily Continue anticoagulation with rivaroxaban Cardiology consulted. Appreciate their input has been stable for 72 hours now waiting on referral to SNF rehab over the weekend (2) Chronic obstructive pulmonary disease: Chronic home O2 use of 2 L/min by nasal cannula, up a little during admission, 3L today Currently without bronchospasm or shortness of breath No exacerbation of COPD Continue usual home medications (3) Diabetes: Poorly controlled Hemoglobin A1c 11.2% Diabetic education appreciated Continue diabetic diet Home medications include Lantus 50 units at bedtime and Insulin aspart as directed Would benefit from endocrinology referral and follow-up Continue Lantus 25 Units twice daily and NovoLog sliding scale while inpatient, sugars are all well controlled, < 200 no hypoglycemic episodes (4) Acute heart failure with preserved ejection fraction: likely due to afib with RVR resolved with Lasix, lungs are clear, good diuresis start on lasix 20mg PO daily, tolerating well, (5) Hypertension: Continue diltiazem 240mg daily, losartan 25mg daily and Toprol 50mg qAM add Lasix 20mg PO daily, Cr and K are stable, might benefit from this low dose diuretic daily Outpatient follow-up with cardiology she would like to follow up with desktop support engineer in [place] (6) On home oxygen therapy: COPD Chronically on 2 L/min by nasal cannula SaO2 Adequate on 3L, try to titrate down to 2L (7) Ambulatory dysfunction: Uses a walker at home but states that she usually just stays in a lift chair recliner due to instability Sleeps in the recliner No reported falls PT eval and treatment ordered, click score very low at 9 recommend rehab, she agrees, referrals made but insurance closed over weekend follow up with CM tomorrow on status of referrals (8) Lymphedema: Chronic lymphedema for several years Dry scaly lower extremities Apply Eucerin cream every shift Wound care consult requested There are some areas with some minimal drainage Outpatient management with PCP Await wound care consult as she may benefit from outpatient wound care (9) DVT prophylaxis: Continue rivaroxaban Ambulate as tolerated with assistance Physical therapy consulted Admission and Anticipated Discharge Date Admission Date: September 22, 2020 Subjective patient doing well today, breathing easy, no chest pain, no fever/chills, no cough she is making a little more urine on the Lasix 20mg daily reviewed labs, Cr 0.88, Na 140, K 4.0 she wants to go home, but she understands she is too weak still waiting on referral and insurance authorization process because her insurance is closed over the weekend she understands this eating and drinking well, moved her bowels two nights ago Review of Systems Review of Systems: All systems reviewed & are unremarkable except as noted in Subjective Constitutional: + weakness; no fever, no chills, no sweats and no fatigue Respiratory: no cough and no dyspnea Cardiovascular: + edema (chronic lymphedema); no chest pain, no palpitations and no syncope Gastrointestinal: no abdominal pain, no nausea, no vomiting, no constipation and no diarrhea/loose stools Musculoskeletal: + muscle weakness Physical Exam Constitutional: WD/WN, vitals as above + obese; no acute distress Neck: trachea midline, no thyromegaly Respiratory: normal respiratory effort, lungs clear to auscultation Cardiovascular: Rate/Rhythm: regular rate and + irregularly irregular Heart Sounds: normal S1 and normal S2; no murmur Vessels: no JVD Extremities: normal capillary refill and + edema (trace bilaterally) Gastrointestinal (Abdomen): normal bowel sounds, soft, nontender, no hepatosplenomegaly Musculoskeletal: Head/Neck/Chest: normocephalic, head atraumatic and neck supple Extremities: extremities normal to inspection and + abnormal strength; no cyanosis, no clubbing and no petechiae Skin: no rashes, warm and dry Neurologic: patellar DTR's 2+ bilat, sensation intact and PERRL, EOMI, accommodation nl, no face palsy, no dysarthria Psychiatric: A+Ox3, euthymic affect Lymphatic: + lymphedema Results & Data Results & Data ([facility]) Vital Signs (Past 12 Hours) Vital Signs Temp Pulse Resp BP Pulse Ox 09/26/20 07:09 36.9 C 96 H 20 120/71 94 09/26/20 02:42 36.6 C 70 16 115/73 96 09/25/20 22:51 36.9 C 94 H 16 109/73 94 Laboratory Results Laboratory Results - last 24 hr 09/25/20 09/25/20 09/25/20 11:06 16:45 20:12 Sodium Potassium Chloride Carbon Dioxide Anion Gap BUN Creatinine Est Cr Clr Drug Dosing Est GFR ( Amer) Est GFR (Non-Af Amer) BUN/Creatinine Ratio Glucose POC Glucose 196 H 90 113 H Calcium 09/26/20 09/26/20 06:55 07:45 Sodium 140 Potassium 4.0 Chloride 106 Carbon Dioxide 35 H Anion Gap -1.0 L BUN 16 Creatinine 0.88 Est Cr Clr Drug Dosing 70.5 Est GFR ( Amer) 74.0 Est GFR (Non-Af Amer) 63.8 BUN/Creatinine Ratio 18.0 Glucose 114 H POC Glucose 137 H Calcium 8.8 Medications Administered Current Inpatient Medications Acetaminophen (Acetaminophen 325 Mg Tab) 650 mg PO Q4H PRN PRN Reason: Pain or Fever Stop: 10/22/20 20:03 Last Admin: 09/26/20 03:06 Dose: 650 mg Documented by: Albuterol (Albuterol Hfa 8 Gm Inhaler) 2 puffs INH Q6R PRN PRN Reason: Cough or Wheezing Stop: 10/22/20 20:03 Dextrose (Dextrose 50% 50 Ml Syringe) 25 - 50 ml IV UD PRN; Protocol PRN Reason: Hypoglycemia Protocol Stop: 10/22/20 20:03 Diltiazem HCl (Diltiazem Hcl 240 Mg Capcr) 240 mg PO QAM [facility]EREMI Stop: 10/23/20 08:59 Last Admin: 09/26/20 08:06 Dose: 240 mg Documented by: Docusate Sodium (Docusate Sodium 100 Mg Cap) 200 mg PO BID JEREMI Stop: 10/22/20 20:59 Last Admin: 09/26/20 08:05 Dose: 200 mg Documented by: Duloxetine HCl (Duloxetine Hcl 60 Mg Cap) 60 mg PO HS [facility]ER[facility] Stop: 10/22/20 20:59 Last Admin: 09/25/20 20:14 Dose: 60 mg Documented by: Furosemide (Furosemide 20 Mg Tab) 20 mg PO QAM JEREMI Stop: 10/26/20 08:59 Glucagon (Glucagon For Inj 1 Mg Vial) 1 mg SQ UD PRN; Protocol PRN Reason: Hypoglycemia Protocol Stop: 10/22/20 20:03 Glucose (Glucose 10 Tabs/Tube) 4 - 8 tabs PO UD PRN; Protocol PRN Reason: Hypoglycemia Protocol Stop: 10/22/20 20:03 Glucose (Glucose 40% Gel 15 Gm Tube) 15 - 30 gm PO UD PRN; Protocol PRN Reason: Hypoglycemia Protocol Stop: 10/22/20 20:03 Insulin Aspart (Insulin Aspart 100 Units/Ml 3 Ml Pen) 0 units SC ACHS [facility] Stop: 10/22/20 20:59 Last Admin: 09/26/20 08:06 Dose: 13 units Documented by: Insulin Glargine (Insulin Glargine Solostar 100 Units/Ml 3 Ml Pen) 25 units SC BID [facility] Stop: 10/22/20 20:59 Last Admin: 09/26/20 08:06 Dose: 25 units Documented by: Levothyroxine Sodium (Levothyroxine Sodium 100 Mcg Tablet) 100 mcg PO DAILYBB [facility] Stop: 10/23/20 06:29 Last Admin: 09/26/20 06:10 Dose: 100 mcg Documented by: Losartan Potassium (Losartan Potassium 25 Mg Tab) 25 mg PO QAM [facility] Stop: 10/23/20 08:59 Last Admin: 09/26/20 08:05 Dose: 25 mg Documented by: Metoclopramide HCl (Metoclopramide Hcl 10 Mg Tablet) 10 mg PO QID [facility] Stop: 10/22/20 20:59 Last Admin: 09/25/20 20:12 Dose: 10 mg Documented by: Metoprolol Succinate (Metoprolol Succ 50mg Ext Rel Tab) [facility] [place]: 10/23/20 12:44 Last Admin: 09/26/20 08:05 Dose: 50 mg Documented by: Miconazole Nitrate (Miconazole Nitrate Powder 43 Gm) 1 appln EXT BID [facility] Stop: 10/23/20 08:59 Last Admin: 09/26/20 08:04 Dose: 1 appln Documented by: Mirabegron (Mirabegron Er 25 Mg Tab) 50 mg [facility] [place] 10/23/20 08:59 Last Admin: 09/26/20 08:05 Dose: 50 mg Documented by: Miscellaneous (Creon: Order Awaiting Action) 1 ea N/A QS [facility] Stop: 10/23/20 20:44 Last Admin: 09/26/20 08:04 Dose: Not Given Documented by: Miscellaneous (Carbohydrates For Hypoglycemia ) 15 - 30 gm PO UD PRN PRN Reason: Hypoglycemia Protocol Stop: 10/22/20 20:03 Multi-Ingredient Cream (Eucerin Cr 120 Gm Jar) 1 appln EXT QSHIFT [facility] Stop: 10/23/20 15:59 Last Admin: 09/26/20 08:03 Dose: 1 appln Documented by: Ondansetron HCl (Ondansetron Inj 2 Mg/Ml 2 Ml Vial) 4 mg IV Q6H PRN PRN Reason: Nausea Stop: 10/22/20 20:03 Polyethylene Glycol (Polyethylene (Miralax) 17 Gm Pack) 17 gm PO DAILY PRN PRN Reason: Constipation Stop: 10/22/20 20:03 Rivaroxaban (Rivaroxaban 20 Mg Tab) 20 mg PO QPM [facility] Stop: 10/22/20 20:59 Last Admin: 09/25/20 20:13 Dose: 20 mg Documented by: Ropinirole HCl (Ropinirole Hcl 1 Mg Tablet) 1 mg PO TID [facility] Stop: 10/22/20 20:59 Last Admin: 09/26/20 08:05 Dose: 1 mg Documented by: Sucralfate (Sucralfate 1 Gm Tab) 1 gm PO QID@0700,1100,1600,2100 [facility] Stop: 10/22/20 20:59 Last Admin: 09/26/20 06:11 Dose: 1 gm Documented by: PG Care Time/CCT Total # of Minutes Spent Total Time Spent with Patient: Total time spent is greater than 50% in coordination of care (as documented) at patient's floor/unit and/or counseling patient: Coding Level of Care Code 04093 Subseq Hosp Care Lvl 2 Diagnoses Atrial fibrillation with rapid ventricular response I48.91 Chronic obstructive pulmonary disease J44.9 COPD type: unspecified COPD Diabetes E11.69; Z79.4 Diabetes mellitus type: type 2 Diabetes mellitus shelter insulin use: with long term acute care registered nurse use Diabetes mellitus complication status: with other specified complication Acute heart failure with preserved ejection fraction I50.31 Hypertension I10 Hypertension type: essential hypertension On home oxygen therapy Z99.81 Ambulatory dysfunction R26.2 Lymphedema I89.0 DVT prophylaxis Z29.9 (1) Chronic obstructive pulmonary disease COPD type: unspecified COPD Qualified Code(s): J44.9 - Chronic obstructive pulmonary disease, unspecified (2) Diabetes Diabetes mellitus type: type 2 Diabetes mellitus shelter insulin use: with shelter use Diabetes mellitus complication status: with other specified complication Qualified Code(s): E11.69 - Type 2 diabetes mellitus with other specified complication; Z79.4 - terminal clerk (current) use of insulin (3) Hypertension Hypertension type: essential hypertension Qualified Code(s): I10 - Essential (primary) hypertension
[2020-09-26] MEDS: FUROSEMIDE 20 MG TAB PO SCH (10:29)
[2020-09-26] MEDS: METOCLOPRAMIDE HCL 10 MG TABLET PO SCH ×4 (10:29→20:43)
[2020-09-26] MEDS: RIVAROXABAN 20 MG TAB PO SCH (20:43)
[2020-09-26] MEDS: DULoxetine HCL 60 MG CAP PO SCH (20:44)
[2020-09-26] MEDS ORDERED: diphenhydrAMINE Capsule 25 MG CAP PO ONE (21:20)
[2020-09-27] MEDS: LEVOTHYROXINE SODIUM 100 MCG TABLET PO SCH (05:27)
[2020-09-27] MEDS: SUCRALFATE 1 GM TAB PO SCH ×4 (05:27→20:27)
[2020-09-27] MEDS: INSULIN ASPART 100 UNITS/ML 3 ML PEN SC SCH ×4 (08:23→20:23)
[2020-09-27] MEDS: METOPROLOL SUCC 50MG EXT REL TAB PO SCH (08:24)
[2020-09-27] MEDS: dilTIAZem HCL 240 MG CAPCR PO SCH (08:24)
[2020-09-27] MEDS: METOCLOPRAMIDE HCL 10 MG TABLET PO SCH ×4 (08:25→20:26)
[2020-09-27] MEDS: rOPINIRole HCL 1 MG TABLET PO SCH ×3 (08:25→20:27)
[2020-09-27] MEDS: MIRABEGRON ER 25 MG TAB PO SCH (08:25)
[2020-09-27] MEDS: FUROSEMIDE 20 MG TAB PO SCH (08:26)
[2020-09-27] MEDS: LOSARTAN POTASSIUM 25 MG TAB PO SCH (08:26)
[2020-09-27] MEDS: INSULIN GLARGINE SOLOSTAR 100 UNITS/ML 3 ML PEN SC SCH ×2 (08:27→20:29)
[2020-09-27] MEDS: DOCUSATE SODIUM 100 MG CAP PO SCH ×2 (08:29→20:31)
[2020-09-27] MEDS: MICONAZOLE NITRATE POWDER 43 GM EXT SCH ×2 (09:00→20:34)
[2020-09-27] MEDS: EUCERIN CR 120 GM JAR EXT SCH ×2 (09:00→16:06)
--- NOTE | 2020-09-27 19:22 | Hospitalist Progress Note ---
Date of Service September 27, 2020 Assessment & Plan (1) Atrial fibrillation with rapid ventricular response: Patient spontaneously converted, but now back to afib, rates controlled Continue Toprol-XL 50mg, continue home dose of Diltiazem 240mg daily Continue anticoagulation with rivaroxaban Cardiology consulted. Appreciate their input has been stable for 72 hours now waiting on referral to SNF rehab over the weekend (2) Chronic obstructive pulmonary disease: Chronic home O2 use of 2 L/min by nasal cannula, up a little during admission, 3L today Currently without bronchospasm or shortness of breath No exacerbation of COPD Continue usual home medications (3) Diabetes: Poorly controlled Hemoglobin A1c 11.2% Diabetic education appreciated Continue diabetic diet Home medications include Lantus 50 units at bedtime and Insulin aspart as directed Would benefit from endocrinology referral and follow-up Continue Lantus 25 Units twice daily and NovoLog sliding scale while inpatient, sugars are all well controlled, < 200 no hypoglycemic episodes (4) Acute heart failure with preserved ejection fraction: likely due to afib with RVR resolved with Lasix, lungs are clear, good diuresis start on lasix 20mg PO daily, tolerating well, (5) Hypertension: Continue diltiazem 240mg daily, losartan 25mg daily and Toprol 50mg qAM add Lasix 20mg PO daily, Cr and K are stable, might benefit from this low dose diuretic daily Outpatient follow-up with cardiology she would like to follow up with physician office specialist in [place] (6) On home oxygen therapy: COPD Chronically on 2 L/min by nasal cannula SaO2 Adequate on 3L, try to titrate down to 2L (7) Ambulatory dysfunction: Uses a walker at home but states that she usually just stays in a lift chair recliner due to instability Sleeps in the recliner No reported falls PT eval and treatment ordered, click score very low at 9 recommend rehab, she agrees, referrals made but insurance closed over weekend follow up with CM tomorrow on status of referrals (8) Lymphedema: Chronic lymphedema for several years Dry scaly lower extremities Apply Eucerin cream every shift Wound care consult requested There are some areas with some minimal drainage Outpatient management with PCP Await wound care consult as she may benefit from outpatient wound care (9) DVT prophylaxis: Continue rivaroxaban Ambulate as tolerated with assistance Physical therapy consulted Admission and Anticipated Discharge Date Admission Date: September 22, 2020 Subjective No appetite on arrival which has improved significantly Denies palpitations, chest pain or pressure Dyspnea is at baseline Her cough is nonproductive She wears 2L oxygen chronically and is at baseline No trouble with bowel or bladder Waiting on SNF approval Review of Systems Constitutional: no fever, no chills, no fatigue, no weakness, no anorexia, no weight loss and no weight gain Ear, Nose, Mouth, Throat: no nasal congestion, no sore throat and no dysphagia Respiratory: no cough and no dyspnea Cardiovascular: no chest pain, no dyspnea on exertion, no orthopnea and no palpitations Gastrointestinal: no abdominal pain, no nausea, no vomiting, no hematemesis, no dysphagia, no constipation, no diarrhea/loose stools, no blood in stools and no melena Genitourinary: no dysuria, no urinary frequency, no hematuria and no flank pain Musculoskeletal: no back pain, no joint pain, no myalgia and no muscle weakness Integumentary: no rash, no lesions, no skin ulcer, no erythema, no dry skin and no pruritus Neurologic: no falls, no localized weakness, no generalized weakness, no numbness, no paresthesia, no tremor(s) and no headache(s) Psychiatric: no depression, no suicidal ideation, no homicidal ideation and no anxiety Endocrine: no cold intolerance and no heat intolerance Hematologic / Lymphatic: no easy bleeding and no easy bruising Physical Exam Constitutional: well developed and well nourished; no acute distress Eyes: PERRL, conjunctivae normal, anicteric sclerae ENMT: Mouth: oral mucous membranes not dry Respiratory: normal respiratory effort; no respiratory distress and no labored breathing Auscultation: lungs clear to auscultation bilaterally; no crackles, no rales, no rhonchi and no wheezes Cardiovascular: Rate/Rhythm: regular rate and regular rhythm Heart Sounds: no murmur and no cardiac rub Vessels: normal peripheral pulses and radial pulses present; no JVD Extremities: no edema Gastrointestinal (Abdomen): Inspection/Auscultation: abdomen normal to inspection and normal bowel sounds; abdomen not distended Percussion/Palpation: abdomen soft; abdomen nontender, no guarding, abdomen not rigid and no hepatosplenomegaly Musculoskeletal: Head/Neck/Chest: normocephalic and head atraumatic Spine: no cervical spinal tenderness, no cervical muscular tenderness, no thoracic spinal tenderness and no lumbar spinal tenderness Skin: no rashes, warm and dry Neurologic: CN's II-XI intact bilaterally and moves all extremities Motor/Sensory: no tremor and no sensory deficit Psychiatric: Orientation: alert, oriented to person, oriented to place and oriented to time Apperance: appropriately groomed; not disheveled Affect: euthymic affect; no anxious affect and no tearful affect Genitourinary: no CVA tenderness no De catheter Results & Data Results & Data ([facility]) Vital Signs (Past 12 Hours) Vital Signs Temp Pulse Resp BP Pulse Ox 09/27/20 15:11 37.2 C 61 20 98/54 L 98 09/27/20 08:09 36.9 C 83 20 119/71 97 PG Care Time/CCT Total # of Minutes Spent Total Time Spent with Patient: Total time spent is greater than 50% in coordination of care (as documented) at patient's floor/unit and/or counseling patient: Coding Level of Care Code 32017 Subseq Hosp Care Lvl 2 Diagnoses Atrial fibrillation with rapid ventricular response I48.91 Chronic obstructive pulmonary disease J44.9 COPD type: unspecified COPD Diabetes E11.69; Z79.4 Diabetes mellitus type: type 2 Diabetes mellitus assisted insulin use: with assisted use Diabetes mellitus complication status: with other specified complication Acute heart failure with preserved ejection fraction I50.31 Hypertension I10 Hypertension type: essential hypertension On home oxygen therapy Z99.81 Ambulatory dysfunction R26.2 Lymphedema I89.0 DVT prophylaxis Z29.9 (1) Chronic obstructive pulmonary disease COPD type: unspecified COPD Qualified Code(s): J44.9 - Chronic obstructive pulmonary disease, unspecified (2) Diabetes Diabetes mellitus type: type 2 Diabetes mellitus assisted insulin use: with assisted use Diabetes mellitus complication status: with other specified complication Qualified Code(s): E11.69 - Type 2 diabetes mellitus with other specified complication; Z79.4 - group home (current) use of insulin (3) Hypertension Hypertension type: essential hypertension Qualified Code(s): I10 - Essential (primary) hypertension
[2020-09-27] MEDS: DULoxetine HCL 60 MG CAP PO SCH (20:26)
[2020-09-27] MEDS: RIVAROXABAN 20 MG TAB PO SCH (20:28)
[2020-09-27] MEDS ORDERED: diphenhydrAMINE Capsule 25 MG CAP PO PRN (23:52)
[2020-09-28] MEDS: EUCERIN CR 120 GM JAR EXT SCH ×4 (00:51→23:44)
[2020-09-28] MEDS: LEVOTHYROXINE SODIUM 100 MCG TABLET PO SCH (05:45)
[2020-09-28 07:22] LABS: Hematocrit (blood only) 36.3 % (37-47); Hemoglobin 10.7 g/dL (12.0-16.0); Mean Corpuscular Hgb Conc 29.5 g/dL (32-36); Mean Corpuscular Volume 88.1 fL (80-100); Mean Platelet Volume 9.3 fL (7.4-10.4); Platelet Count 179 K/uL (130-400); RDW Coefficient of Variation 16.1 % (11.5-14.5); RDW Standard Deviation 51.6 fL (36.4-46.3); Red Blood Count 4.12 M/uL (4.2-5.4); White Blood Count 6.53 K/uL (4.8-10.8)
[2020-09-28 08:04] LABS: Calcium 8.8 mg/dl (8.5-10.1); Creatinine Clr Calc Pharmacy 65.3 ml/min; Est GFR (African American) 67.4; Est GFR (Non-African American) 58.2; Magnesium 2.1 mg/dl (1.8-2.4); Potassium 3.7 mmol/L (3.5-5.1)
[2020-09-28 08:05] LABS: Phosphorus 2.9 mg/dl (2.5-4.9)
[2020-09-28] MEDS: INSULIN ASPART 100 UNITS/ML 3 ML PEN SC SCH ×4 (08:24→20:54)
[2020-09-28] MEDS: INSULIN GLARGINE SOLOSTAR 100 UNITS/ML 3 ML PEN SC SCH ×2 (08:25→20:53)
[2020-09-28] MEDS: METOCLOPRAMIDE HCL 10 MG TABLET PO SCH ×4 (08:25→20:27)
[2020-09-28] MEDS: SUCRALFATE 1 GM TAB PO SCH ×4 (08:26→20:27)
[2020-09-28] MEDS: FUROSEMIDE 20 MG TAB PO SCH (08:26)
[2020-09-28] MEDS: MIRABEGRON ER 25 MG TAB PO SCH (08:26)
[2020-09-28] MEDS: rOPINIRole HCL 1 MG TABLET PO SCH ×3 (08:26→20:27)
[2020-09-28] MEDS: METOPROLOL SUCC 50MG EXT REL TAB PO SCH (08:26)
[2020-09-28] MEDS: LOSARTAN POTASSIUM 25 MG TAB PO SCH (08:26)
[2020-09-28] MEDS: dilTIAZem HCL 240 MG CAPCR PO SCH (08:27)
[2020-09-28] MEDS: MICONAZOLE NITRATE POWDER 43 GM EXT SCH ×2 (08:28→20:29)
[2020-09-28] MEDS: DOCUSATE SODIUM 100 MG CAP PO SCH ×2 (08:31→20:31)
--- NOTE | 2020-09-28 17:57 | Hospitalist Progress Note ---
Date of Service September 28, 2020 Assessment & Plan (1) Atrial fibrillation with rapid ventricular response: Patient spontaneously converted, but now back to afib, rates controlled Continue Toprol-XL 50mg, continue home dose of Diltiazem 240mg daily Continue anticoagulation with rivaroxaban Cardiology consulted. Appreciate their input has been stable for 72 hours now waiting on referral to SNF rehab over the weekend (2) Chronic obstructive pulmonary disease: Chronic home O2 use of 2 L/min by nasal cannula, up a little during admission, 3L today Currently without bronchospasm or shortness of breath No exacerbation of COPD Continue usual home medications (3) Diabetes: Poorly controlled Hemoglobin A1c 11.2% Diabetic education appreciated Continue diabetic diet Home medications include Lantus 50 units at bedtime and Insulin aspart as directed Would benefit from endocrinology referral and follow-up Continue Lantus 25 Units twice daily and NovoLog sliding scale while inpatient, sugars are all well controlled, < 200 no hypoglycemic episodes (4) Acute heart failure with preserved ejection fraction: likely due to afib with RVR resolved with Lasix, lungs are clear, good diuresis start on lasix 20mg PO daily, tolerating well, (5) Hypertension: Continue diltiazem 240mg daily, losartan 25mg daily and Toprol 50mg qAM add Lasix 20mg PO daily, Cr and K are stable, might benefit from this low dose diuretic daily Outpatient follow-up with cardiology she would like to follow up with medical chief technician in [place] (6) On home oxygen therapy: COPD Chronically on 2 L/min by nasal cannula SaO2 Adequate on 3L, try to titrate down to 2L (7) Ambulatory dysfunction: Uses a walker at home but states that she usually just stays in a lift chair recliner due to instability Sleeps in the recliner No reported falls PT eval and treatment ordered, click score very low at 9 recommend rehab, she agrees, referrals made but insurance closed over weekend follow up with CM tomorrow on status of referrals (8) Lymphedema: Chronic lymphedema for several years Dry scaly lower extremities Apply Eucerin cream every shift Wound care consult requested There are some areas with some minimal drainage Outpatient management with PCP Await wound care consult as she may benefit from outpatient wound care (9) DVT prophylaxis: Continue rivaroxaban Ambulate as tolerated with assistance Physical therapy consulted Admission and Anticipated Discharge Date Admission Date: September 22, 2020 Subjective Urinating ok Tolerating diet No BM since Pulled muscle lifting off bed to commode, some right chest pain since Ambulating with walker No palpitations No dyspnea Review of Systems Constitutional: no fever, no chills, no fatigue, no weakness, no anorexia, no weight loss and no weight gain Ear, Nose, Mouth, Throat: no nasal congestion, no sore throat and no dysphagia Respiratory: no cough and no dyspnea Cardiovascular: no chest pain, no dyspnea on exertion, no orthopnea and no palpitations Gastrointestinal: no abdominal pain, no nausea, no vomiting, no hematemesis, no dysphagia, no constipation, no diarrhea/loose stools, no blood in stools and no melena Genitourinary: no dysuria, no urinary frequency, no hematuria and no flank pain Musculoskeletal: no back pain, no joint pain, no myalgia and no muscle weakness chest pain with movement on right Integumentary: no rash, no lesions, no skin ulcer, no erythema, no dry skin and no pruritus Neurologic: no falls, no localized weakness, no generalized weakness, no numbness, no paresthesia, no tremor(s) and no headache(s) Psychiatric: no depression, no suicidal ideation, no homicidal ideation and no anxiety Endocrine: no cold intolerance and no heat intolerance Hematologic / Lymphatic: no easy bleeding and no easy bruising Physical Exam Constitutional: well developed and well nourished; no acute distress Eyes: PERRL, conjunctivae normal, anicteric sclerae ENMT: Mouth: oral mucous membranes not dry Respiratory: normal respiratory effort; no respiratory distress and no labored breathing Auscultation: lungs clear to auscultation bilaterally; no crackles, no rales, no rhonchi and no wheezes Cardiovascular: Rate/Rhythm: regular rate and regular rhythm Heart Sounds: no murmur and no cardiac rub Vessels: normal peripheral pulses and radial pulses present; no JVD Extremities: + edema (4+ bilateral Lymphedema) Gastrointestinal (Abdomen): Inspection/Auscultation: abdomen normal to inspection and normal bowel sounds; abdomen not distended Percussion/Palpation: abdomen soft; abdomen nontender, no guarding, abdomen not rigid and no hepatosplenomegaly Musculoskeletal: Head/Neck/Chest: normocephalic and head atraumatic Spine: no cervical spinal tenderness, no cervical muscular tenderness, no thoracic spinal tenderness and no lumbar spinal tenderness Skin: no rashes, warm and dry Neurologic: CN's II-XI intact bilaterally and moves all extremities Motor/Sensory: no tremor and no sensory deficit Psychiatric: Orientation: alert, oriented to person, oriented to place and oriented to time Apperance: appropriately groomed; not disheveled Affect: euthymic affect; no anxious affect and no tearful affect Genitourinary: no CVA tenderness Results & Data Results & Data ([facility]) Vital Signs (Past 12 Hours) Vital Signs Temp Pulse Resp BP Pulse Ox 09/28/20 15:48 36.6 C 59 L 19 116/57 L 98 09/28/20 11:38 36.7 C 91 H 18 116/65 98 09/28/20 08:01 36.9 C 92 H 18 121/80 92 PG Care Time/CCT Total # of Minutes Spent Total Time Spent with Patient: Total time spent is greater than 50% in coordination of care (as documented) at patient's floor/unit and/or counseling patient: Coding Level of Care Code 22834 Subseq Hosp Care Lvl 2 Diagnoses Atrial fibrillation with rapid ventricular response I48.91 Chronic obstructive pulmonary disease J44.9 COPD type: unspecified COPD Diabetes E11.69; Z79.4 Diabetes mellitus type: type 2 Diabetes mellitus care home insulin use: with care home use Diabetes mellitus complication status: with other specified complication Acute heart failure with preserved ejection fraction I50.31 Hypertension I10 Hypertension type: essential hypertension On home oxygen therapy Z99.81 Ambulatory dysfunction R26.2 Lymphedema I89.0 DVT prophylaxis Z29.9 (1) Chronic obstructive pulmonary disease COPD type: unspecified COPD Qualified Code(s): J44.9 - Chronic obstructive pulmonary disease, unspecified (2) Diabetes Diabetes mellitus type: type 2 Diabetes mellitus intermediate designer insulin use: with care home use Diabetes mellitus complication status: with other specified complication Qualified Code(s): E11.69 - Type 2 diabetes mellitus with other specified complication; Z79.4 - terminal carman (current) use of insulin (3) Hypertension Hypertension type: essential hypertension Qualified Code(s): I10 - Essential (primary) hypertension
[2020-09-28] MEDS: ACETAMINOPHEN 325 MG TAB PO PRN (20:26)
[2020-09-28] MEDS: DULoxetine HCL 60 MG CAP PO SCH (20:27)
[2020-09-28] MEDS: RIVAROXABAN 20 MG TAB PO SCH (20:28)
[2020-09-28] MEDS ORDERED: DICLOFENAC SOD 1% GEL 100 GM TUBE EXT PRN (21:09)
--- NOTE | 2020-09-28 21:14 | Communication Note ---
Date of Service: September 28, 2020 Called to bedside by nursing for concern of sharp right armpit pain with inspiration; on presentation to bedside patient resting comfortably but noting that with deep breaths she gets some armpit/breast bone pain, that is not there when she is breathing regularly. Not having any central substernal chest pain, no shortness of breath, no increased oxygen requirements, no palpitations, no lightheadedness, no dizziness. Patient with known history of Atrial fibrillation on Xarelto for >3 years. On my exam, patient with non-labored breathing, productive cough, palpable and reproduced chest wall tenderness over second intercostal space over right. Discussed with patient that given reproducible pain will trial topical Voltaren gel over irritated space to determine if the pain is controlled. Will continue to monitor. 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
[2020-09-29] MEDS: LEVOTHYROXINE SODIUM 100 MCG TABLET PO SCH (06:28)
[2020-09-29] MEDS: SUCRALFATE 1 GM TAB PO SCH ×2 (06:28→11:57)
[2020-09-29 07:15] LABS: Hematocrit (blood only) 34.9 % (37-47); Hemoglobin 10.6 g/dL (12.0-16.0); Mean Corpuscular Hemoglobin 26.4 pg (25-34); Mean Corpuscular Hgb Conc 30.4 g/dL (32-36); Mean Corpuscular Volume 86.8 fL (80-100); Mean Platelet Volume 9.7 fL (7.4-10.4); Platelet Count 206 K/uL (130-400); RDW Coefficient of Variation 16.2 % (11.5-14.5); RDW Standard Deviation 52.1 fL (36.4-46.3); Red Blood Count 4.02 M/uL (4.2-5.4); White Blood Count 6.27 K/uL (4.8-10.8)
[2020-09-29] MEDS: EUCERIN CR 120 GM JAR EXT SCH (07:48)
[2020-09-29] MEDS: METOCLOPRAMIDE HCL 10 MG TABLET PO SCH ×2 (07:49→11:57)
[2020-09-29] MEDS: METOPROLOL SUCC 50MG EXT REL TAB PO SCH (07:49)
[2020-09-29] MEDS: FUROSEMIDE 20 MG TAB PO SCH (07:49)
[2020-09-29] MEDS: MIRABEGRON ER 25 MG TAB PO SCH (07:49)
[2020-09-29 07:50] LABS: BUN Creatinine Ratio 22.9 (10-20); Calcium 8.9 mg/dl (8.5-10.1); Creatinine Clr Calc Pharmacy 71.3 ml/min; Est GFR (Non-African American) 64.7; Magnesium 2.1 mg/dl (1.8-2.4); Phosphorus 3.1 mg/dl (2.5-4.9); Potassium 4.1 mmol/L (3.5-5.1)
[2020-09-29] MEDS: rOPINIRole HCL 1 MG TABLET PO SCH (07:50)
[2020-09-29] MEDS: dilTIAZem HCL 240 MG CAPCR PO SCH (07:50)
[2020-09-29] MEDS: LOSARTAN POTASSIUM 25 MG TAB PO SCH (07:50)
[2020-09-29] MEDS: MICONAZOLE NITRATE POWDER 43 GM EXT SCH (07:50)
[2020-09-29] MEDS: DOCUSATE SODIUM 100 MG CAP PO SCH (07:53)
[2020-09-29] MEDS: INSULIN GLARGINE SOLOSTAR 100 UNITS/ML 3 ML PEN SC SCH (07:54)
[2020-09-29] MEDS: INSULIN ASPART 100 UNITS/ML 3 ML PEN SC SCH ×2 (07:55→11:57)
--- NOTE | 2020-09-29 12:28 | Discharge Summary ---
Date of Service September 29, 2020 Admission HPI Per Admitting Provider 75-year-old female past medical history significant for A. fib on Xarelto therapy, insulin-dependent DM2, mixed incontinence, hypertension, COPD on 2LNC presented to the ER during preoperative testing today due to concern for SVT on EKG. In the ER patient was noted on telemetry and EKG to be in A. fib with RVR. Was given NSS 1 L bolus as well as her home diltiazem 240 mg p.o. which the patient missed this morning, but after several hours without response was started on diltiazem push and drip. Hospitalist service was consulted for admission given continued A. fib. On my interview patient denies chest pain, palpitations, shortness of breath, dizziness or headache, abdominal pain. No recent urinary symptoms, no diarrhea. Principal Diagnosis atrial fibrillation with rapid ventricular rate Discharge Exam Constitutional well developed and well nourished; no acute distress Eyes PERRL, conjunctivae normal, anicteric sclerae ENMT Mouth: oral mucous membranes not dry Respiratory normal respiratory effort; no respiratory distress and no labored breathing Auscultation: lungs clear to auscultation bilaterally; no crackles, no rales, no rhonchi and no wheezes Cardiovascular Rate/Rhythm: regular rate and regular rhythm Heart Sounds: no murmur and no cardiac rub Vessels: normal peripheral pulses and radial pulses present; no JVD Extremities: + edema (4+ bilateral Lymphedema) Gastrointestinal (Abdomen) Inspection/Auscultation: abdomen normal to inspection and normal bowel sounds; abdomen not distended Percussion/Palpation: abdomen soft; abdomen nontender, no guarding, abdomen not rigid and no hepatosplenomegaly Musculoskeletal Head/Neck/Chest: normocephalic and head atraumatic Spine: no cervical spinal tenderness, no cervical muscular tenderness, no thoracic spinal tenderness and no lumbar spinal tenderness Skin no rashes, warm and dry Neurologic CN's II-XI intact bilaterally and moves all extremities Motor/Sensory: no tremor and no sensory deficit Psychiatric Orientation: alert, oriented to person, oriented to place and oriented to time Apperance: appropriately groomed; not disheveled Affect: euthymic affect; no anxious affect and no tearful affect Genitourinary no CVA tenderness Discharge Data Allergies Allergy/AdvReac Type Severity Reaction Status Date / Time sulfamethoxazole Allergy Mild Hand Verified 09/22/20 15:58 [From Bactrim] blisters trimethoprim [From Bactrim] Allergy Mild Hand Verified 09/22/20 15:58 blisters indomethacin [From Indocin] AdvReac Severe Headache Verified 09/22/20 15:58 Consultations 09/22/20 17:18 ED Decision to Admit Stat 09/22/20 18:14 Consult Cardiology Routine 09/23/20 09:53 Consult Case Management - Discharge Planning Routine Diabetes Follow up Diabetes Follow-up Needed for HgbA1c >9% Hospital Course (1) Atrial fibrillation with rapid ventricular response: Patient spontaneously converted, but now back to afib, rates controlled Continue Toprol-XL 50mg, continue home dose of Diltiazem 240mg daily Continue anticoagulation with rivaroxaban Cardiology consulted. Appreciate their input has been stable for 72 hours now waiting on referral to SNF rehab over the weekend (2) Chronic obstructive pulmonary disease: Chronic home O2 use of 2 L/min by nasal cannula, up a little during admission, 3L today Currently without bronchospasm or shortness of breath No exacerbation of COPD Continue usual home medications (3) Diabetes: Poorly controlled Hemoglobin A1c 11.2% Diabetic education appreciated Continue diabetic diet Home medications include Lantus 50 units at bedtime and Insulin aspart as directed Would benefit from endocrinology referral and follow-up Continue Lantus 25 Units twice daily and NovoLog sliding scale while inpatient, sugars are all well controlled, < 200 no hypoglycemic episodes (4) Acute heart failure with preserved ejection fraction: likely due to afib with RVR resolved with Lasix, lungs are clear, good diuresis start on lasix 20mg PO daily, tolerating well (5) Hypertension: Continue diltiazem 240mg daily, losartan 25mg daily and Toprol 50mg qAM add Lasix 20mg PO daily, Cr and K are stable, might benefit from this low dose diuretic daily Outpatient follow-up with cardiology she would like to follow up with [facility] [place] (6) On home oxygen therapy: COPD Chronically on 2 L/min by nasal cannula SaO2 Adequate on 3L, try to titrate down to 2L (7) Ambulatory dysfunction: Uses a walker at home but states that she usually just stays in a lift chair recliner due to instability Sleeps in the recliner No reported falls PT eval and treatment ordered, click score very low at 9 recommend rehab, she agrees, referrals made but insurance closed over weekend follow up with CM tomorrow on status of referrals (8) Lymphedema: Chronic lymphedema for several years Dry scaly lower extremities Apply Eucerin cream every shift Wound care consult requested There are some areas with some minimal drainage Outpatient management with PCP Await wound care consult as she may benefit from outpatient wound care (9) DVT prophylaxis: Continue rivaroxaban Ambulate as tolerated with assistance Physical therapy consulted Total Time Total Time Spent Total Time Spent (In Minutes): 35 Total Time Includes: Examination of the Patient, Discharge Planning, Medication Reconciliation and Communication With Other Providers Discharge Plan Discharge Items Patient Disposition: Transfer [facility] Reason For Visit: AFIB VS FLUTTER WITH RVR Discharge Diagnosis: atrial fibrillation with RVR Activity: Resume your previous activity Non-emergency contact: Primary Care Provider Call non-emergency contact if: you have any medication questions Follow-up/Referrals: Cristine Hayes MD [Primary Care Provider] - (within one week) Diet: Carb Consistent or DM2 and Heart Healthy Addtl Attending Provider Instructions: You were treated for atrial fibrillation with rapid rate Currently you are in atrial fibrillation, but with normal rates Continue to take your new medication metoprolol to prevent rapid rates Start taking lasix everyday to help with swelling and shortness of breath Continue physical therapy at the nursing facility 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 * Use the same scale. * Wear the same amount of clothing. * Write your weight down on your chart. * Call your doctor if you gain more than 2-3 pounds in 1-2 days. MEDICATIONS * Use this discharge instruction sheet for instructions. * Take your medications at the time your doctor ordered. * Do not skip a dose of your medicines. * If you miss a dose of medicine, take as soon as possible, but DO NOT DOUBLE A DOSE. * Read your medicine information when you get home. * Know all of the side effects of your medicine. * Call your doctor's office if you have any side effects. * Be sure all of your doctors know what medicine and herbs you take (including cold, flu, and herbal medicine). * Pain Medicine: If you do not get relief from your pain, please call your doctor for help. Take the following with you to your follow-up doctor appointments: * Weight Chart * Medication List * List of questions Do not drink excessive alcohol, beer or wine. Pending Studies at Discharge: No Stand-Alone Forms: My [facility] Skilled Items Patient informed of condition?: Yes DNR: No Discharge Level of Care: Skilled Communicable Disease: No Discharge Prognosis: Stable Lines: None Urinary Catheter: No Medications and DC Order Prescriptions: New metoprolol succinate 50 mg Tablet Extended Release 24 Hr 50 mg PO QAM 90 Days Qty: 90 RF: 0 acetaminophen 325 mg Tablet 650 mg PO Q4H PRN (Reason: fever or pain) Qty: 90 RF: 0 diclofenac sodium [Voltaren] 1 % Gel 4 g EXT Q4H PRN (Reason: pain) Qty: 50 RF: 0 furosemide 20 mg Tablet 20 mg PO QAM 90 Days Qty: 90 RF: 0 Continued Myrbetriq 50 mg tablet extended release 24 hr 50 mg PO QAM RF: 0 rivaroxaban 20 mg tablet 20 mg PO QPM RF: 0 metoclopramide HCl 10 mg tablet 10 mg PO QID RF: 0 docusate sodium 100 mg capsule 400 mg PO HS RF: 0 losartan 25 mg tablet 25 mg PO QAM RF: 0 insulin aspart U-100 100 unit/mL solution 0 - 30 unit subcut UD RF: 0 levothyroxine 100 mcg tablet 100 mcg PO QAM RF: 0 sucralfate 1 gram tablet 1 g PO ACHS RF: 0 ropinirole 1 mg tablet 1 mg PO TID RF: 0 diltiazem HCl 240 mg capsule,extended release 24hr 240 mg PO QAM RF: 0 albuterol sulfate 90 mcg/actuation HFA aerosol inhaler 2 puff INHALATION QID PRN (Reason: Cough or Wheezing) RF: 0 Lantus Solostar U-100 Insulin 100 unit/mL (3 mL) insulin pen 50 unit SUBCUT HS RF: 0 diphenhydramine HCl 25 mg Capsule 25 mg PO HS PRN (Reason: Itching) RF: 0 duloxetine 60 mg Capsule,Delayed Release(Dr/Ec) 60 mg PO HS RF: 0 cholecalciferol (vitamin D3) [Vitamin D3] 25 mcg (1,000 unit) Tablet 25 mcg PO DAILY RF: 0 Creon 6,000-19,000 -30,000 unit Capsule,Delayed Release(Dr/Ec) 1 cap PO BID RF: 0 Discontinued amoxicillin 500 mg Capsule 500 mg PO TID RF: 0 Discharge Orders: Discharge Order (Routine); Ordered 09/29/20 Ordered By: Tanja Gutiérrez Admission Data Admit Date/Time: 09/22/20 18:27 Attending Provider: Tanja Gutiérrez Admit Provider: Mercedes Steven Primary Care Provider: Cristine Hayes Other Providers: Bhavin Stinson ; Jake Thibodeaux Coding Level of Care Code D/C Day Management >30 mins Diagnoses Atrial fibrillation with rapid ventricular response I48.91 Chronic obstructive pulmonary disease J44.9 COPD type: unspecified COPD Diabetes E11.69; Z79.4 Diabetes mellitus type: type 2 Diabetes mellitus 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
== END 2020-09-29 13:29 | DRG 308 ==
LOC: ED 13:56 → SUATTDRO 18:27 → 2E 18:27 → 2N 09-25 11:47